=== PATIENT | male | born 1945 | race Caucasian/White ===

== ENCOUNTER 2018-07-17 05:51 | Day surgery (SDC) | payer MEDICARE, BC, OTHER ==
[2018-07-10 11:31] LABS: BASOPHILS % (AUTO) 0.4 % (0-1); EOSINOPHILS # (AUTO) 0.2 X10'3 (0-0.9); EOSINOPHILS % (AUTO) 3.4 % (0-6); LYMPHOCYTES # (AUTO) 1.2 X10'3 (1.1-4.8); LYMPHOCYTES % (AUTO) 18.9 % (21-51); MEAN CORPUSCULAR HEMOGLOBIN 31.4 PG (27.0-31.0); MEAN CORPUSCULAR HGB CONC 34.3 % (33.0-36.5); MEAN CORPUSCULAR VOLUME 91.6 FL (78-98); MEAN PLATELET VOLUME 7.4 FL (7.4-10.4); MONOCYTES # (AUTO) 0.6 X10'3 (0-0.9); MONOCYTES % (AUTO) 9.5 % (2-12); NEUTROPHILS # (AUTO) 4.2 X10'3 (1.8-7.7); NEUTROPHILS % (AUTO) 67.8 % (42-75); PRE OP HEMATOCRIT 37.6 % (42.0-52.0); PRE OP HEMOGLOBIN 12.9 g/dL (14.0-17.9); PRE OP PLATELET COUNT 183 X10'3 (140-440); RED CELL DISTRIBUTION WIDTH 13.3 % (11.5-14.5)
[2018-07-10 11:45] LABS: ALBUMIN 3.6 G/DL (3.4-5.0); ALBUMIN/GLOBULIN RATIO 1.1 (1.1-1.5); ALKALINE PHOSPHATASE 81 IU/L (46-116); BLOOD UREA NITROGEN 22 MG/DL (7-18); BUN/CREATININE RATIO 13.3 (5.4-32.0); CALCIUM 8.8 MG/DL (8.5-10.1); CHLORIDE 104 MMOL/L (99-107); CREATININE 1.66 MG/DL (0.60-1.10); PRE OP ALT 32 U/L (30-65); PRE OP ANION GAP 5 (8-16); PRE OP AST 21 U/L (10-37); PRE OP BILIRUB, TOTAL 0.4 MG/DL (0.0-1.0); PRE OP POTASSIUM 4.5 MMOL/L (3.4-5.1); PRE OP SODIUM 140 MMOL/L (135-145); TOTAL CARBON DIOXIDE 30.6 MMOL/L (24-32); eGFR 41 ML/MIN
[2018-07-10 11:48] LABS: PRE OP GLUCOSE 106 MG/DL (70-104)
[~2018-07-17] VITALS: Ht 165.1 cm; Wt 97.4 kg
[2018-07-17 05:45] VITALS: BP 123/87
[~2018-07-17 05:51] MED LIST: APIX5TAB3 PO; BUPR100T6 PO; BUSP5TAB3 PO; CARV25TA2 PO; CETI10TA15 PO; CYA500T PO; EZET10TA14 PO; FERR325T28 PO; FISH12002 PO; LEVO50TA8 PO; LOSA25TA96 PO; PARA500W TP; ROSU40TA PO; SERT100T10 PO; TAMS0.4C32 PO; TRAZ-218 PO; VITC500T PO; cefazolin/dext.iso 2gm/50ml 50 ML IV ONE; famotidine 20mg tablet PO ONE; ringers solution, lacted 1,000 ML IV SCH
[2018-07-17] MEDS ORDERED: BUPIVAcaine/PF 2.5mg/ml (0.25%) 10ml vial ONE (08:15)
[2018-07-17] MEDS ORDERED: ringers solution, lacted 1,000 ML IV SCH (08:22)
[2018-07-17] MEDS ORDERED: meperidine/PF 25mg/ml syringe IV PRN ×3 (08:25)
[2018-07-17] MEDS ORDERED: ondansetron/PF 4mg/2ml inj IV PRN (08:25)
[2018-07-17] MEDS ORDERED: morphine 4 MG/ML inj SYRINge IV PRN ×2 (08:25)
[2018-07-17] MEDS ORDERED: proCHLORperazine 10 MG/2 ml inj IV PRN (08:25)
[2018-07-17] MEDS ORDERED: MIDAZolam 5mg/5ml vial ONE (08:32)
[2018-07-17] MEDS ORDERED: fentaNYL/PF 50MCG/1 ML 2ML syringe ONE (08:32)
[2018-07-17] MEDS ORDERED: ketorolac trometh. 30mg/ml inj. ONE ×2 (08:33→08:58)
[2018-07-17] MEDS ORDERED: propofol inj 20 ML IV ONE (08:34)
[2018-07-17 09:25] VITALS: BP 116/71
[2018-07-17 09:26] VITALS: BP 116/71
[2018-07-17 09:35] VITALS: BP 122/75
[2018-07-17 09:45] VITALS: BP 124/71
[2018-07-17 09:55] VITALS: BP 116/69
[2018-07-17] MEDS ORDERED: LIDOcaine 1% 30ml preserv. free vial ONE (10:14)
== END 2018-07-17 09:55 | disposition home or self-care (01) ==
LOC: PAS 05:51
PROVIDERS: ATTEND Orthopaedic Surgery Hand Surgery
DX: G56.02 Carpal tunnel syndrome, left upper limb (principal); M65.332 Trigger finger, left middle finger; I44.7 Left bundle-branch block, unspecified; F10.21 Alcohol dependence, in remission; G47.33 Obstructive sleep apnea (adult) (pediatric); I11.0 Hypertensive heart disease with heart failure; I50.9 Heart failure, unspecified; I49.8 Other specified cardiac arrhythmias; E11.9 Type 2 diabetes mellitus without complications; E66.9 Obesity, unspecified; E03.9 Hypothyroidism, unspecified; F41.8 Other specified anxiety disorders; I65.23 Occlusion and stenosis of bilateral carotid arteries; I48.91 Unspecified atrial fibrillation; F32.9 Major depressive disorder, single episode, unspecified; F43.10 Post-traumatic stress disorder, unspecified; Z88.5 Allergy status to narcotic agent; Z79.01 Long term (current) use of anticoagulants; Z68.35 Body mass index [BMI] 35.0-35.9, adult; Z87.442 Personal history of urinary calculi; Z86.74 Personal history of sudden cardiac arrest; Z79.891 Long term (current) use of opiate analgesic; Z90.49 Acquired absence of other specified parts of digestive tract; Z87.891 Personal history of nicotine dependence; Z98.890 Other specified postprocedural states; Z79.899 Other long term (current) drug therapy
CPT/HCPCS: 26055; 36415; 64721; 80053; 82948; 85025; 93005; A6222; A6449; J0690; J1885; J2250; J2704; J3010; J3490; J7120

== ENCOUNTER 2018-08-14 05:21 | Day surgery (SDC) | payer MEDICARE, BC, OTHER ==
[~2018-08-14] VITALS: Ht 165.1 cm; Wt 96.8 kg
[~2018-08-14 05:21] MED LIST changes: -famotidine 20mg tablet PO ONE
[2018-08-14 05:30] VITALS: BP 107/76
[2018-08-14] MEDS ORDERED: famotidine 20mg tablet PO ONE (05:30)
[2018-08-14] MEDS ORDERED: DOCUMENT DATE & TIME OF BETA-BLOCKER PO ONE (05:30)
[2018-08-14] MEDS ORDERED: LIDOcaine 1% (10mg/ml) 2ml vial ONE (05:43)
[2018-08-14 06:24] LABS: BASOPHILS # (AUTO) 0.1 X10'3 (0-0.2); EOSINOPHILS # (AUTO) 0.3 X10'3 (0-0.9); HEMATOCRIT 42.2 % (42.0-52.0); HEMOGLOBIN 13.9 g/dl (14.0-17.9); LYMPHOCYTES # (AUTO) 1.3 X10'3 (1.1-4.8); LYMPHOCYTES % (AUTO) 25.6 % (21-51); MEAN CORPUSCULAR HEMOGLOBIN 30.3 PG (27.0-31.0); MEAN CORPUSCULAR VOLUME 91.7 FL (78-98); MEAN PLATELET VOLUME 7.6 FL (7.4-10.4); MONOCYTES # (AUTO) 0.6 X10'3 (0-0.9); MONOCYTES % (AUTO) 11.2 % (2-12); NEUTROPHILS # (AUTO) 2.7 X10'3 (1.8-7.7); NEUTROPHILS % (AUTO) 57.2 % (42-75); PLATELET COUNT 206 X10'3 (140-440); RED CELL DISTRIBUTION WIDTH 12.7 % (11.5-14.5)
[2018-08-14 06:48] LABS: ALANINE AMINOTRANSFERASE 29 U/L (12-78); ALBUMIN 3.4 G/DL (3.4-5.0); ALBUMIN/GLOBULIN RATIO 0.9 (1.1-1.5); ALKALINE PHOSPHATASE 77 IU/L (46-116); ANION GAP 13 (8-16); BILIRUBIN,TOTAL 0.3 MG/DL (0.1-1.0); BLOOD UREA NITROGEN 28 MG/DL (7-18); BUN/CREATININE RATIO 15.5 (5.4-32.0); CALCIUM 8.7 MG/DL (8.5-10.1); CHLORIDE 105 MMOL/L (99-107); CREATININE 1.81 MG/DL (0.60-1.10); SODIUM 141 MMOL/L (135-145); TOTAL CARBON DIOXIDE 22.6 MMOL/L (24-32); eGFR 37 ML/MIN
[2018-08-14] MEDS ORDERED: BUPIVAcaine/PF 2.5mg/ml (0.25%) 10ml vial ONE (06:51)
[2018-08-14 06:59] LABS: GLUCOSE 140 MG/DL (70-104); POTASSIUM 3.9 MMOL/L (3.5-5.1)
[2018-08-14 07:00] LABS: PARTIAL THROMBOPLASTIN TIME 29 SECONDS (22-32); PROTHROMBIN TIME 10.3 SECONDS (9.0-12.0)
[2018-08-14 07:09] LABS: ASPARTATE AMINO TRANSFERASE 20 U/L (10-37)
[2018-08-14] MEDS ORDERED: LIDOcaine 0.5% (5mg/ml) 50ml vial ONE (07:27)
[2018-08-14] MEDS ORDERED: fentaNYL/PF 50MCG/1 ML 2ML syringe ONE (07:31)
[2018-08-14] MEDS ORDERED: midazolam 2 mg/2 ml injection ONE (07:32)
[2018-08-14] MEDS ORDERED: ringers solution, lacted 1,000 ML IV SCH (07:39)
[2018-08-14] MEDS ORDERED: meperidine/PF 25mg/ml syringe IV PRN ×3 (07:40)
[2018-08-14] MEDS ORDERED: morphine 4 MG/ML inj SYRINge IV PRN ×2 (07:40)
[2018-08-14] MEDS ORDERED: ondansetron/PF 4mg/2ml inj IV PRN (07:40)
[2018-08-14] MEDS ORDERED: proCHLORperazine 10 MG/2 ml inj IV PRN (07:40)
[2018-08-14 08:07] VITALS: BP 104/61
--- NOTE | 2018-08-14 08:07 | NUR ---
Received from OR via [facility] , accompanied by Anesthesiologist DUSTIN and report given by Anesthesiolgist. PATIENT WITH 20G PIV IN LEFT UE AND RIGHT WRIST CHINMAY BANDAGE THAT IS CDI. MOVES ALL FINGERS AND THEY ARE PWD. PATIENT WITH 3L NASAL CANNULA PRESENT WITH 95% SATURATIONS. Addendum: 08/14/18 at 0818 by Calos Good RN, RN Amended: Links added.
[2018-08-14 08:17] VITALS: BP_SYST 105; BP_SYST 107; BP_DIAS 62; BP_DIAS 64
[2018-08-14 08:27] VITALS: BP 130/68
[2018-08-14 08:37] VITALS: BP 137/74
--- NOTE | 2018-08-14 08:47 | NUR ---
ALL DC CRITERIA HAS BEEN MET. IV TAKEN OUT WITHOUT COMPLICATIONS. ALL INSTRUCTIONS COVERED AND ALL QUESTIONS ANSWERED. DRESSINGS CDI. OUT VIA WHEELCHAIR TO PERSONAL VEHICLE WHERE PATIENT WAS SECURED IN AND DRIVEN HOME BY FAMILY. Addendum: 08/14/18 at 0901 by Calos Good RN, RN Amended: Links added.
== END 2018-08-14 08:47 | disposition home or self-care (01) ==
LOC: PAS 05:21
PROVIDERS: ATTEND Orthopaedic Surgery Hand Surgery
DX: G56.01 Carpal tunnel syndrome, right upper limb (principal); I10 Essential (primary) hypertension; E11.9 Type 2 diabetes mellitus without complications; G47.33 Obstructive sleep apnea (adult) (pediatric); E66.9 Obesity, unspecified; F41.8 Other specified anxiety disorders; F43.10 Post-traumatic stress disorder, unspecified; I48.91 Unspecified atrial fibrillation; I65.23 Occlusion and stenosis of bilateral carotid arteries; E03.9 Hypothyroidism, unspecified; F10.21 Alcohol dependence, in remission; F32.9 Major depressive disorder, single episode, unspecified; Z79.01 Long term (current) use of anticoagulants; Z87.891 Personal history of nicotine dependence; Z68.35 Body mass index [BMI] 35.0-35.9, adult; Z86.74 Personal history of sudden cardiac arrest; Z87.442 Personal history of urinary calculi; Z79.891 Long term (current) use of opiate analgesic; Z88.5 Allergy status to narcotic agent; Z90.49 Acquired absence of other specified parts of digestive tract; Z98.890 Other specified postprocedural states; Z79.899 Other long term (current) drug therapy
CPT/HCPCS: 36415; 64721; 80053; 82948; 85025; 85610; 85730; A6222; A6449; J0690; J2001; J2250; J3010; J3490; J7120

== ENCOUNTER 2019-10-09 07:39 | Emergency (ER) | payer BC, MEDICARE ==
[~2019-10-09] VITALS: Ht 167.6 cm; Wt 98.2 kg
[~2019-10-09 07:39] MED LIST changes: +APIX2.5T PO; +CHOL400T32 PO; -CYA500T PO; -EZET10TA14 PO; +EZET10TA6 PO; -TRAZ-218 PO; +TRAZ-251 PO; -cefazolin/dext.iso 2gm/50ml 50 ML IV ONE; -ringers solution, lacted 1,000 ML IV SCH
--- NOTE | 2019-10-09 08:23 | NUR ---
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 HE RECEIVED THE PACEMAKER INTERROGATION AND IS FAXING THE REPORT. HIS CELL PHONE [phone]
[2019-10-09 09:20] LABS: BASOPHILS # (AUTO) 0.1 X10'3 (0-0.2); BASOPHILS % (AUTO) 1.2 % (0-1); EOSINOPHILS # (AUTO) 0.2 X10'3 (0-0.9); EOSINOPHILS % (AUTO) 3.6 % (0-6); HEMATOCRIT 40.5 % (42.0-52.0); HEMOGLOBIN 13.6 g/dl (14.0-17.9); LYMPHOCYTES # (AUTO) 0.7 X10'3 (1.1-4.8); LYMPHOCYTES % (AUTO) 12.7 % (21-51); MEAN CORPUSCULAR HEMOGLOBIN 30.5 PG (27.0-31.0); MEAN CORPUSCULAR HGB CONC 33.5 g/dL (33.0-36.5); MEAN PLATELET VOLUME 7.8 FL (7.4-10.4); MONOCYTES # (AUTO) 0.6 X10'3 (0-0.9); MONOCYTES % (AUTO) 10.8 % (2-12); NEUTROPHILS # (AUTO) 4.1 X10'3 (1.8-7.7); NEUTROPHILS % (AUTO) 71.7 % (42-75); PLATELET COUNT 165 X10'3 (140-440); RED BLOOD COUNT 4.44 X10'6 (4.70-6.10); WHITE BLOOD COUNT 5.7 X10'3 (4.5-11.0)
[2019-10-09 09:26] LABS: ALANINE AMINOTRANSFERASE 53 U/L (12-78); ALBUMIN 3.3 G/DL (3.4-5.0); ALBUMIN/GLOBULIN RATIO 0.8 (1.1-1.5); ALKALINE PHOSPHATASE 81 IU/L (46-116); ANION GAP 6 (8-16); ASPARTATE AMINO TRANSFERASE 27 U/L (10-37); BILIRUBIN,TOTAL 0.6 MG/DL (0.1-1.0); BLOOD UREA NITROGEN 19 MG/DL (7-18); BUN/CREATININE RATIO 10.8 (5.4-32.0); CHLORIDE 107 MMOL/L (99-107); CREATININE 1.76 MG/DL (0.60-1.10); GLUCOSE 123 MG/DL (70-104); MAGNESIUM 2.2 MG/DL (1.5-2.4); POTASSIUM 4.8 MMOL/L (3.5-5.1); SODIUM 142 MMOL/L (135-145); TOTAL PROTEIN 7.3 G/DL (6.4-8.2); eGFR 38 ML/MIN
[2019-10-09 11:28] VITALS: BP 131/73
== END 2019-10-09 11:45 | disposition home or self-care (01) ==
LOC: ER 07:40
DX: T82.897A Other specified complication of cardiac prosthetic devices, implants and grafts, initial encounter (principal); I47.2 Ventricular tachycardia; I25.10 Atherosclerotic heart disease of native coronary artery without angina pectoris; E78.00 Pure hypercholesterolemia, unspecified; I10 Essential (primary) hypertension; I25.2 Old myocardial infarction; Z95.810 Presence of automatic (implantable) cardiac defibrillator; Z98.890 Other specified postprocedural states; Z88.5 Allergy status to narcotic agent; Z79.899 Other long term (current) drug therapy; Y84.8 Other medical procedures as the cause of abnormal reaction of the patient, or of later complication, without mention of misadventure at the time of the procedure; Y92.89 Other specified places as the place of occurrence of the external cause
CPT/HCPCS: 36415; 71045; 80053; 83735; 84484; 85025; 93005; 99291

== ENCOUNTER 2021-02-03 17:42 | Emergency (ER) | payer OTHER, BC ==
[~2021-02-03] VITALS: Ht 160 cm; Wt 84.0 kg
[~2021-02-03 17:42] MED LIST changes: +AMIO200T27 PO; -APIX2.5T PO; -BUPR100T6 PO; +BUPR75TA8 PO; -BUSP5TAB3 PO; -CARV25TA2 PO; +CARV3.122 PO; -CHOL400T32 PO; +CYAN500T46 PO; -FERR325T28 PO; -FISH12002 PO; +FURO-150 PO; +IPRA4AER IH; +LANO250L TP; +LEVO125T8 PO; -LEVO50TA8 PO; -LOSA25TA96 PO; +OMEG1CAP2 PO; -PARA500W TP; -ROSU40TA PO; +SERT-434 PO; -SERT100T10 PO
[2021-02-03] MEDS ORDERED: normal saline 1000ML IV soln IVB ONE (18:10)
[2021-02-03 18:23] LABS: BASOPHILS % (AUTO) 0.5 % (0-1); EOSINOPHILS % (AUTO) 0.1 % (0-6); HEMATOCRIT 29.7 % (42.0-52.0); HEMOGLOBIN 10.4 g/dl (14.0-17.9); LYMPHOCYTES # (AUTO) 0.6 X10'3 (1.1-4.8); LYMPHOCYTES % (AUTO) 8.8 % (21-51); MEAN CORPUSCULAR HEMOGLOBIN 32.4 PG (27.0-31.0); MEAN CORPUSCULAR HGB CONC 34.9 g/dL (33.0-36.5); MEAN PLATELET VOLUME 7.4 FL (7.4-10.4); MONOCYTES # (AUTO) 0.6 X10'3 (0-0.9); MONOCYTES % (AUTO) 9.4 % (2-12); NEUTROPHILS # (AUTO) 5.5 X10'3 (1.8-7.7); NEUTROPHILS % (AUTO) 81.2 % (42-75); PLATELET COUNT 207 X10'3 (140-440); RED BLOOD COUNT 3.19 X10'6 (4.70-6.10); RED CELL DISTRIBUTION WIDTH 14.9 % (11.5-14.5); WHITE BLOOD COUNT 6.7 X10'3 (4.5-11.0)
[2021-02-03 18:45] LABS: ALANINE AMINOTRANSFERASE 42 U/L (12-78); ALBUMIN 2.7 G/DL (3.4-5.0); ALKALINE PHOSPHATASE 64 IU/L (46-116); ANION GAP 14 (8-16); ASPARTATE AMINO TRANSFERASE 16 U/L (10-37); BILIRUBIN,TOTAL 0.5 MG/DL (0.1-1.0); BLOOD UREA NITROGEN 28 MG/DL (7-18); BUN/CREATININE RATIO 13.5 (5.4-32.0); CALCIUM 7.9 MG/DL (8.5-10.1); CHLORIDE 104 MMOL/L (99-107); CREATININE 2.07 MG/DL (0.60-1.10); GLUCOSE 129 MG/DL (70-104); POTASSIUM 4.4 MMOL/L (3.5-5.1); SODIUM 141 MMOL/L (135-145); TOTAL CARBON DIOXIDE 23.2 MMOL/L (24-32); TOTAL PROTEIN 5.4 G/DL (6.4-8.2); eGFR 31 ML/MIN
[2021-02-03 18:54] LABS: D-DIMER 0.28 MG/L FEU (0-0.50)
[2021-02-03] MEDS ORDERED: GLIP5TAB13 PO (18:56)
[2021-02-03] MEDS ORDERED: OMEP40CA21 PO (18:56)
[2021-02-03] MEDS ORDERED: POTA10TA19 PO (18:56)
[2021-02-03] MEDS ORDERED: PRED5TAB PO (18:56)
[2021-02-03] MEDS ORDERED: MONT10TA21 PO (18:56)
[2021-02-03] MEDS ORDERED: DOCU100C40 PO (18:56)
[2021-02-03 19:45] VITALS: BP 107/73
== END 2021-02-03 20:42 | disposition home or self-care (01) ==
LOC: ER 17:42
DX: R07.89 Other chest pain (principal); E86.0 Dehydration; I48.91 Unspecified atrial fibrillation; I25.10 Atherosclerotic heart disease of native coronary artery without angina pectoris; E78.00 Pure hypercholesterolemia, unspecified; I10 Essential (primary) hypertension; I25.2 Old myocardial infarction; E11.9 Type 2 diabetes mellitus without complications; Z90.49 Acquired absence of other specified parts of digestive tract; Z95.0 Presence of cardiac pacemaker; Z98.890 Other specified postprocedural states; Z88.8 Allergy status to other drugs, medicaments and biological substances; Z79.899 Other long term (current) drug therapy
CPT/HCPCS: 36415; 71045; 80053; 83880; 84145; 84484; 85025; 85379; 93005; 96360; 96361; 99285; J7030

== ENCOUNTER 2021-04-06 13:35 | Emergency (ER) | payer BC, OTHER ==
[~2021-04-06] VITALS: Ht 160 cm; Wt 91.0 kg
[~2021-04-06 13:35] MED LIST changes: -AMIO200T27 PO; +DOCU100C40 PO; +GLIP5TAB13 PO; +MONT10TA21 PO; +OMEP40CA21 PO; +POTA10TA19 PO; +PRED5TAB PO
[2021-04-06 15:44] LABS: BASOPHILS # (AUTO) 0.1 X10'3 (0-0.2); BASOPHILS % (AUTO) 0.9 % (0-1); EOSINOPHILS # (AUTO) 0.1 X10'3 (0-0.9); EOSINOPHILS % (AUTO) 0.5 % (0-6); HEMATOCRIT 38.7 % (42.0-52.0); HEMOGLOBIN 13.1 g/dl (14.0-17.9); LYMPHOCYTES # (AUTO) 1.2 X10'3 (1.1-4.8); LYMPHOCYTES % (AUTO) 12.1 % (21-51); MEAN CORPUSCULAR HEMOGLOBIN 30.1 PG (27.0-31.0); MEAN CORPUSCULAR HGB CONC 33.9 g/dL (33.0-36.5); MEAN CORPUSCULAR VOLUME 88.6 FL (78-98); MONOCYTES # (AUTO) 0.9 X10'3 (0-0.9); NEUTROPHILS # (AUTO) 7.7 X10'3 (1.8-7.7); NEUTROPHILS % (AUTO) 77.5 % (42-75); PLATELET COUNT 168 X10'3 (140-440); RED BLOOD COUNT 4.37 X10'6 (4.70-6.10); RED CELL DISTRIBUTION WIDTH 14.8 % (11.5-14.5)
[2021-04-06 16:01] LABS: ALBUMIN 3.4 G/DL (3.4-5.0); ANION GAP 7 (8-16); BLOOD UREA NITROGEN 37 MG/DL (7-18); BUN/CREATININE RATIO 15.2 (5.4-32.0); CALCIUM 8.9 MG/DL (8.5-10.1); CHLORIDE 104 MMOL/L (99-107); CREATININE 2.43 MG/DL (0.60-1.10); GLUCOSE 88 MG/DL (70-104); POTASSIUM 4.2 MMOL/L (3.5-5.1); SODIUM 142 MMOL/L (135-145); TOTAL CARBON DIOXIDE 31.1 MMOL/L (24-32); TROPONIN I < 0.04 NG/ML (0.0-0.05); eGFR 26 ML/MIN
[2021-04-06 17:58] VITALS: BP 111/47
== END 2021-04-06 18:00 | disposition home or self-care (01) ==
LOC: ER 13:35
DX: I48.20 Chronic atrial fibrillation, unspecified (principal); R07.89 Other chest pain; I25.10 Atherosclerotic heart disease of native coronary artery without angina pectoris; E78.00 Pure hypercholesterolemia, unspecified; I10 Essential (primary) hypertension; I25.2 Old myocardial infarction; E11.9 Type 2 diabetes mellitus without complications; Z90.89 Acquired absence of other organs; Z95.0 Presence of cardiac pacemaker; Z98.890 Other specified postprocedural states; Z88.8 Allergy status to other drugs, medicaments and biological substances; Z79.899 Other long term (current) drug therapy
CPT/HCPCS: 36415; 71045; 80048; 84484; 85025; 93005; 99285

== ENCOUNTER 2021-06-29 14:02 | Inpatient (IN) | payer OTHER, BC ==
[~2021-06-29] VITALS: Ht 162.6 cm; Wt 85.9 kg
[~2021-06-29 14:02] MED LIST changes: +POTA-192 PO; -POTA10TA19 PO
[2021-06-29] MEDS ORDERED: aspirin 81mg tab.chew PO ONE (14:25)
[2021-06-29] MEDS ORDERED: nitroGLYCERIN 0.4mg SUBLingual tab SL PRN (14:25)
[2021-06-29 14:47] LABS: BASOPHILS # (AUTO) 0.1 X10'3 (0-0.2); BASOPHILS % (AUTO) 0.7 % (0-1); EOSINOPHILS # (AUTO) 0.1 X10'3 (0-0.9); EOSINOPHILS % (AUTO) 1.2 % (0-6); HEMATOCRIT 33.8 % (42.0-52.0); HEMOGLOBIN 11.2 g/dl (14.0-17.9); LYMPHOCYTES # (AUTO) 0.6 X10'3 (1.1-4.8); LYMPHOCYTES % (AUTO) 7.7 % (21-51); MEAN CORPUSCULAR HEMOGLOBIN 29.4 PG (27.0-31.0); MEAN CORPUSCULAR VOLUME 88.9 FL (78-98); MEAN PLATELET VOLUME 8.2 FL (7.4-10.4); MONOCYTES # (AUTO) 0.8 X10'3 (0-0.9); MONOCYTES % (AUTO) 9.7 % (2-12); NEUTROPHILS # (AUTO) 6.6 X10'3 (1.8-7.7); NEUTROPHILS % (AUTO) 80.7 % (42-75); PLATELET COUNT 176 X10'3 (140-440); RED CELL DISTRIBUTION WIDTH 15.7 % (11.5-14.5); WHITE BLOOD COUNT 8.2 X10'3 (4.5-11.0)
[2021-06-29 15:00] LABS: D-DIMER 0.25 MG/L FEU (0-0.50); PARTIAL THROMBOPLASTIN TIME 30 SECONDS (22-32)
[2021-06-29 15:09] LABS: ALANINE AMINOTRANSFERASE 31 U/L (12-78); ALBUMIN 3.4 G/DL (3.4-5.0); ALBUMIN/GLOBULIN RATIO 1.1 (1.1-1.5); ALKALINE PHOSPHATASE 68 IU/L (46-116); ANION GAP 6 (8-16); ASPARTATE AMINO TRANSFERASE 18 U/L (10-37); BILIRUBIN,TOTAL 0.7 MG/DL (0.1-1.0); BLOOD UREA NITROGEN 33 MG/DL (7-18); BUN/CREATININE RATIO 13.3 (5.4-32.0); CALCIUM 8.7 MG/DL (8.5-10.1); CHLORIDE 106 MMOL/L (99-107); CREATININE 2.48 MG/DL (0.60-1.10); GLUCOSE 95 MG/DL (70-104); SODIUM 144 MMOL/L (135-145); TOTAL PROTEIN 6.6 G/DL (6.4-8.2); eGFR 25 ML/MIN
[2021-06-29 15:10] LABS: MAGNESIUM 2.6 MG/DL (1.5-2.4)
[2021-06-29] MEDS ORDERED: furosemide 10 MG/1 ML 10ml inj IV ONE (15:25)
[2021-06-29] MEDS ORDERED: MESSAGE TO PHARMACY PO ONE (15:35)
[2021-06-29] MEDS ORDERED: ondansetron/PF 4mg/2ml inj IV PRN (15:35)
[2021-06-29] MEDS ORDERED: dextrose 50%-water 50ml dispensing syringe IV PRN ×2 (15:35)
[2021-06-29] MEDS ORDERED: magnesium hydroxide 30ml (MOM) UD suspension PO PRN (15:35)
[2021-06-29] MEDS ORDERED: dextrose ORAL solution 15 GM/59 ML bottle PO PRN ×2 (15:35)
[2021-06-29] MEDS ORDERED: morphine 2 MG/ML inj. syringe IV PRN ×2 (15:35)
[2021-06-29] MEDS ORDERED: insulin Lispro (HumaLOG) vial - multi-dose SQ SCH (15:35)
[2021-06-29] MEDS ORDERED: acetaminophen 325mg tablet PO PRN ×2 (15:35)
[2021-06-29] MEDS ORDERED: glucagon, human recombinant 1mg kit SUBCUT PRN (15:35)
[2021-06-29] MEDS ORDERED: mag hydrox/Alum hydrox/simeth 30ml oral suspension PO PRN (15:35)
[2021-06-29] MEDS ORDERED: POTA-207 PO (16:05)
[2021-06-29] MEDS ORDERED: SERT-434 PO (16:05)
[2021-06-29] MEDS ORDERED: TIOT4MIS3 PO (16:05)
[2021-06-29] MEDS ORDERED: LEVO112T5 PO (16:05)
[2021-06-29] MEDS ORDERED: APIX5TAB3 PO (16:05)
[2021-06-29] MEDS ORDERED: BUPR75TA8 PO (16:05)
[2021-06-29] MEDS ORDERED: TRAZ-251 PO (16:05)
[2021-06-29] MEDS ORDERED: ROSU20TA2 PO (16:05)
[2021-06-29] MEDS ORDERED: FURO40TA4 PO (16:05)
[2021-06-29] MEDS ORDERED: MULT-227 PO (16:05)
[2021-06-29] MEDS ORDERED: EZET10TA6 PO (16:05)
[2021-06-29] MEDS ORDERED: CARV25TA2 PO (16:05)
[2021-06-29] MEDS ORDERED: ALOG12.5 PO (16:05)
[2021-06-29] MEDS ORDERED: KETO5DRO11 EACHEYE (16:05)
[2021-06-29 16:26] LABS: LACTATE DEHYDROGENASE 221 U/L (85-227)
[2021-06-29 17:26] LABS: HEMOGLOBIN A1C 5.9 % (4.5-6.2)
[2021-06-29] MEDS ORDERED: non-formulary drug (Ketotifen Fumarate 1 DROP) EACHEYE PRN (17:40)
[2021-06-29 19:05] LABS: CLARITY,URINE CLEAR (Clear); COLOR,URINE YELLOW (Yellow); UA COLLECTION TYPE URINAL
[2021-06-29 19:06] LABS: GLUCOSE, URINE NEGATIVE (Neg); KETONES,URINE NEGATIVE (Neg); LEUKOCYTE ESTERASE ,URINE NEGATIVE (Neg); NITRITES, URINE NEGATIVE (Neg); OCCULT BLOOD,URINE NEGATIVE (Neg); PROTEIN,URINE NEGATIVE (Neg); UROBILINOGEN,URINE 0.2 E.U/dL (0.2-1.0)
[2021-06-29] MEDS ORDERED: heparin, porcine 5000 units/ml vial SQ SCH (20:00)
[2021-06-29] MEDS: carVEDilol 12.5mg tablet PO SCH ×2 (20:00→20:23)
[2021-06-29] MEDS ORDERED: furosemide 40mg/4ml inj IV SCH (20:00)
[2021-06-29] MEDS ORDERED: apixaban 5mg tablet PO SCH (20:00)
[2021-06-29] MEDS: docusate sod 100mg capsule PO SCH (20:23)
[2021-06-29] MEDS: buPROPion 75mg tablet PO SCH (20:23)
[2021-06-29] MEDS ORDERED: insulin glargine (Lantus) pen - multi-dose SQ SCH (21:00)
[2021-06-29] MEDS ORDERED: traZODone 50mg tablet PO SCH (21:00)
[2021-06-30 05:36] LABS: BASOPHILS % (AUTO) 0.6 % (0-1); EOSINOPHILS # (AUTO) 0.3 X10'3 (0-0.9); EOSINOPHILS % (AUTO) 3.7 % (0-6); HEMATOCRIT 28.1 % (42.0-52.0); HEMOGLOBIN 9.3 g/dl (14.0-17.9); LYMPHOCYTES # (AUTO) 0.8 X10'3 (1.1-4.8); LYMPHOCYTES % (AUTO) 10.3 % (21-51); MEAN CORPUSCULAR HEMOGLOBIN 29.8 PG (27.0-31.0); MEAN CORPUSCULAR HGB CONC 33.2 g/dL (33.0-36.5); MEAN CORPUSCULAR VOLUME 89.7 FL (78-98); MEAN PLATELET VOLUME 8.8 FL (7.4-10.4); MONOCYTES # (AUTO) 0.8 X10'3 (0-0.9); MONOCYTES % (AUTO) 11.1 % (2-12); NEUTROPHILS # (AUTO) 5.5 X10'3 (1.8-7.7); NEUTROPHILS % (AUTO) 74.3 % (42-75); PLATELET COUNT 150 X10'3 (140-440); RED BLOOD COUNT 3.13 X10'6 (4.70-6.10); RED CELL DISTRIBUTION WIDTH 16.2 % (11.5-14.5); WHITE BLOOD COUNT 7.4 X10'3 (4.5-11.0)
[2021-06-30 05:55] LABS: ALBUMIN 2.7 G/DL (3.4-5.0); ANION GAP 9 (8-16); BLOOD UREA NITROGEN 32 MG/DL (7-18); CALCIUM 7.3 MG/DL (8.5-10.1); CHLORIDE 110 MMOL/L (99-107); CHOLESTEROL 73 MG/DL (0-200); CREATININE 2.28 MG/DL (0.60-1.10); GLUCOSE 73 MG/DL (70-104); HDL CHOLESTEROL 36 MG/DL (35-60); LDL CHOLESTEROL 33 MG/DL (50-100); POTASSIUM 3.1 MMOL/L (3.5-5.1); SODIUM 148 MMOL/L (135-145); TOTAL CARBON DIOXIDE 28.7 MMOL/L (24-32); TRIGLYCERIDES 58 MG/DL (20-135); eGFR 28 ML/MIN
[2021-06-30] MEDS: carVEDilol 12.5mg tablet PO SCH (07:06)
[2021-06-30] MEDS: buPROPion 75mg tablet PO SCH (07:06)
[2021-06-30] MEDS: docusate sod 100mg capsule PO SCH (07:06)
[2021-06-30] MEDS ORDERED: multivitamins, therapeutics tablet PO SCH (08:00)
[2021-06-30] MEDS ORDERED: levoTHYROXINE 112mcg tablet PO SCH (08:00)
[2021-06-30] MEDS ORDERED: ezetimibe 10mg tablet PO SCH (08:00)
[2021-06-30] MEDS ORDERED: carVEDilol 3.125mg tablet PO SCH (08:00)
[2021-06-30] MEDS ORDERED: atorvastatin 20mg tablet PO SCH (08:00)
[2021-06-30] MEDS ORDERED: STIOLTO RESPIMAT PO SCH (08:00)
[2021-06-30] MEDS ORDERED: sertraline 50mg tablet PO SCH (08:00)
--- NOTE | 2021-06-30 08:14 | NUR ---
PT'S SON, PAYTON IBARRA, CALLED FOR UP DATE ON HIS FATHER'S STATUS. PT HAS GIVEN VERBAL PERMISSION TO GIVE INFORMATION ON HIS STATUS DURING HIS CURRENT VISIT.
[2021-06-30] MEDS ORDERED: FURO40TA4 PO (10:59)
[2021-06-30] MEDS ORDERED: CARV3.12 PO (11:03)
[2021-06-30] MEDS ORDERED: SPIR25TA5 PO (11:03)
[2021-06-30] MEDS ORDERED: LISI5TAB22 PO (11:03)
[2021-06-30 11:33] VITALS: BP 98/65
[2021-07-04] MEDS ORDERED: FURO-149 PO (12:54)
[2021-07-04] MEDS ORDERED: PRED1TAB PO (12:54)
[2021-07-04] MEDS ORDERED: CETI10TA15 PO (12:54)
[2021-07-04] MEDS ORDERED: VIT1CAPS46 PO (12:54)
[2021-07-04] MEDS ORDERED: OMEG-79 PO (12:54)
[2021-07-04] MEDS ORDERED: CYAN500T46 PO (12:54)
[2021-07-04] MEDS ORDERED: FLO0.4C PO (12:54)
[2021-07-04] MEDS ORDERED: ALOG6.252 PO (12:54)
== END 2021-06-30 12:39 | disposition home or self-care (01) | DRG 291 ==
LOC: ER 14:02 → ED HOLD 15:42
PROVIDERS: ADMIT Internal Medicine; ATTEND Internal Medicine
DX: I13.0 Hypertensive heart and chronic kidney disease with heart failure and stage 1 through stage 4 chronic kidney disease, or unspecified chronic kidney disease (principal); I50.23 Acute on chronic systolic (congestive) heart failure; I24.9 Acute ischemic heart disease, unspecified; J96.11 Chronic respiratory failure with hypoxia; N17.9 Acute kidney failure, unspecified; E03.9 Hypothyroidism, unspecified; E11.22 Type 2 diabetes mellitus with diabetic chronic kidney disease; E11.65 Type 2 diabetes mellitus with hyperglycemia; E78.00 Pure hypercholesterolemia, unspecified; E78.5 Hyperlipidemia, unspecified; F32.A Depression, unspecified; G47.00 Insomnia, unspecified; F41.9 Anxiety disorder, unspecified; I49.5 Sick sinus syndrome; I25.10 Atherosclerotic heart disease of native coronary artery without angina pectoris; I48.0 Paroxysmal atrial fibrillation; J44.9 Chronic obstructive pulmonary disease, unspecified; N18.30 Chronic kidney disease, stage 3 unspecified; Z20.822 Contact with and (suspected) exposure to COVID-19; Z79.01 Long term (current) use of anticoagulants; Z79.899 Other long term (current) drug therapy; Z87.891 Personal history of nicotine dependence; Z90.49 Acquired absence of other specified parts of digestive tract; I25.2 Old myocardial infarction; Z95.810 Presence of automatic (implantable) cardiac defibrillator; Z88.5 Allergy status to narcotic agent; Z98.49 Cataract extraction status, unspecified eye
CPT/HCPCS: 36415; 71045; 80048; 80053; 80061; 81003; 82948; 83036; 83615; 83735; 83880; 84484; 85025; 85379; 85610; 85730; 87635; 93005; 93306; 99285; G0378; J1815; J1940

== ENCOUNTER 2021-07-18 12:02 | Inpatient (IN) | payer OTHER, BC ==
[~2021-07-18] VITALS: Ht 160 cm; Wt 86.5 kg
[~2021-07-18 12:02] MED LIST changes: +ALOG6.252 PO; +CARV25TA2 PO; -CARV3.122 PO; -DOCU100C40 PO; +FLO0.4C PO; +FURO-149 PO; -FURO-150 PO; -GLIP5TAB13 PO; -IPRA4AER IH; +KETO5DRO11 EACHEYE; -LANO250L TP; +LEVO112T5 PO; -LEVO125T8 PO; -MONT10TA21 PO; +MULT-227 PO; +OMEG-79 PO; -OMEG1CAP2 PO; -OMEP40CA21 PO; -POTA-192 PO; +POTA-207 PO; +PRED1TAB PO; -PRED5TAB PO; +ROSU20TA2 PO; -TAMS0.4C32 PO; +TIOT4MIS3 PO; +VIT1CAPS46 PO; -VITC500T PO
--- NOTE | 2021-07-18 14:09 | NUR ---
COLLINS Shaw made aware of patient's status, HR 158 afib RVR.
[2021-07-18] MEDS ORDERED: diltiazem 5mg/ml 5ml inj. IV ONE ×2 (14:15→14:25)
[2021-07-18 14:16] LABS: BASOPHILS # (AUTO) 0.1 X10'3 (0-0.2); BASOPHILS % (AUTO) 0.7 % (0-1); EOSINOPHILS # (AUTO) 0.1 X10'3 (0-0.9); EOSINOPHILS % (AUTO) 0.8 % (0-6); HEMATOCRIT 36.6 % (42.0-52.0); HEMOGLOBIN 11.9 g/dl (14.0-17.9); LYMPHOCYTES # (AUTO) 0.6 X10'3 (1.1-4.8); LYMPHOCYTES % (AUTO) 7.1 % (21-51); MEAN CORPUSCULAR HEMOGLOBIN 28.3 PG (27.0-31.0); MEAN CORPUSCULAR HGB CONC 32.4 g/dL (33.0-36.5); MEAN CORPUSCULAR VOLUME 87.4 FL (78-98); MEAN PLATELET VOLUME 8.8 FL (7.4-10.4); MONOCYTES # (AUTO) 0.9 X10'3 (0-0.9); NEUTROPHILS # (AUTO) 7.4 X10'3 (1.8-7.7); NEUTROPHILS % (AUTO) 81.4 % (42-75); PLATELET COUNT 191 X10'3 (140-440); RED BLOOD COUNT 4.19 X10'6 (4.70-6.10); WHITE BLOOD COUNT 9.1 X10'3 (4.5-11.0)
[2021-07-18] MEDS ORDERED: nitroGLYCERIN-Tridil 50MG/D5W 250 ML IV PRN (14:25)
[2021-07-18] MEDS ORDERED: furosemide 10 MG/1 ML 10ml inj IV ONE (14:25)
[2021-07-18 14:44] LABS: ALANINE AMINOTRANSFERASE 35 U/L (12-78); ALBUMIN 3.5 G/DL (3.4-5.0); ALKALINE PHOSPHATASE 80 IU/L (46-116); ANION GAP 13 (8-16); ASPARTATE AMINO TRANSFERASE 26 U/L (10-37); BILIRUBIN,TOTAL 1.1 MG/DL (0.1-1.0); BLOOD UREA NITROGEN 34 MG/DL (7-18); BUN/CREATININE RATIO 12.7 (5.4-32.0); CALCIUM 9.5 MG/DL (8.5-10.1); CHLORIDE 98 MMOL/L (99-107); CREATININE 2.67 MG/DL (0.60-1.10); GLUCOSE 115 MG/DL (70-104); POTASSIUM 4.5 MMOL/L (3.5-5.1); SODIUM 139 MMOL/L (135-145); TOTAL CARBON DIOXIDE 28.3 MMOL/L (24-32); TOTAL PROTEIN 7.1 G/DL (6.4-8.2); eGFR 23 ML/MIN
[2021-07-18 14:55] LABS: PARTIAL THROMBOPLASTIN TIME 31 SECONDS (22-32)
[2021-07-18] MEDS ORDERED: FURO40TA4 PO (15:16)
[2021-07-18] MEDS ORDERED: furosemide 20 MG/2 ML vial IV ONE (16:35)
[2021-07-18] MEDS ORDERED: diltiazem-NS 100mg/100ml 100 ML IV SCH (16:45)
[2021-07-18] MEDS ORDERED: mag hydrox/Alum hydrox/simeth 30ml oral suspension PO PRN (17:20)
[2021-07-18] MEDS ORDERED: magnesium hydroxide 30ml (MOM) UD suspension PO PRN (17:20)
[2021-07-18] MEDS ORDERED: ondansetron/PF 4mg/2ml inj IV PRN (17:20)
[2021-07-18] MEDS ORDERED: acetaminophen 325mg tablet PO PRN (17:20)
[2021-07-18] MEDS ORDERED: non-formulary drug (Ketotifen Fumarate 1 DROP) EACHEYE PRN (17:25)
[2021-07-18] MEDS ORDERED: cetirizine 10mg tablet PO PRN (17:25)
--- NOTE | 2021-07-18 18:50 | NUR ---
Patient resting comfortably in bed. He is provided his call levine and updated on POC. No distress.
[2021-07-18] MEDS ORDERED: non-formulary drug (Vit C/E/Zn/Coppr/Lutein/Zeaxan (Preservision Areds 2 Softgel) 1 CAP) PO SCH (20:00)
[2021-07-18] MEDS: apixaban 5mg tablet PO SCH (20:00)
[2021-07-18] MEDS: OMEGA-3/DHA/EPA/FISH OIL 1 EACH CAPSULE.DR PO SCH (22:14)
[2021-07-18] MEDS: traZODone 50mg tablet PO SCH (22:14)
[2021-07-18] MEDS: docusate sod 100mg capsule PO SCH (22:14)
[2021-07-18] MEDS: carVEDilol 12.5mg tablet PO SCH (22:14)
[2021-07-18] MEDS: buPROPion 75mg tablet PO SCH (22:14)
[2021-07-18] MEDS: furosemide 40mg/4ml inj IV SCH (22:15)
[2021-07-19 02:00] VITALS: BP 97/69
[2021-07-19 06:00] VITALS: BP 106/88
[2021-07-19 06:56] LABS: BASOPHILS % (AUTO) 0.4 % (0-1); EOSINOPHILS # (AUTO) 0.3 X10'3 (0-0.9); EOSINOPHILS % (AUTO) 3.6 % (0-6); HEMATOCRIT 30.9 % (42.0-52.0); HEMOGLOBIN 10.5 g/dl (14.0-17.9); LYMPHOCYTES # (AUTO) 0.5 X10'3 (1.1-4.8); LYMPHOCYTES % (AUTO) 6.9 % (21-51); MEAN CORPUSCULAR VOLUME 85.4 FL (78-98); MEAN PLATELET VOLUME 8.6 FL (7.4-10.4); MONOCYTES # (AUTO) 0.9 X10'3 (0-0.9); MONOCYTES % (AUTO) 11.9 % (2-12); NEUTROPHILS # (AUTO) 5.7 X10'3 (1.8-7.7); NEUTROPHILS % (AUTO) 77.2 % (42-75); PLATELET COUNT 155 X10'3 (140-440); RED BLOOD COUNT 3.61 X10'6 (4.70-6.10); RED CELL DISTRIBUTION WIDTH 16.3 % (11.5-14.5); WHITE BLOOD COUNT 7.4 X10'3 (4.5-11.0)
--- NOTE | 2021-07-19 07:21 | NUR ---
Patient in room PCU 3015. I have received report from FREDERICK Perez and had the opportunity to ask questions and assume patient care.
[2021-07-19 07:41] LABS: ANION GAP 7 (8-16); BLOOD UREA NITROGEN 34 MG/DL (7-18); BUN/CREATININE RATIO 13.9 (5.4-32.0); CALCIUM 8.4 MG/DL (8.5-10.1); CHLORIDE 102 MMOL/L (99-107); CREATININE 2.45 MG/DL (0.60-1.10); GLUCOSE 85 MG/DL (70-104); POTASSIUM 3.4 MMOL/L (3.5-5.1); SODIUM 142 MMOL/L (135-145); TOTAL CARBON DIOXIDE 33.2 MMOL/L (24-32); eGFR 26 ML/MIN
[2021-07-19] MEDS: STIOLTO RESPIMAT PO SCH (08:00)
[2021-07-19] MEDS: furosemide 40mg/4ml inj IV SCH ×2 (08:00→20:09)
[2021-07-19] MEDS ORDERED: potassium Cl 20 mEq SR tablet PO SCH (08:00)
--- NOTE | 2021-07-19 09:00 | NUR ---
Lasix 40 hold until the b/p improves. Potassium 4.5
--- NOTE | 2021-07-19 09:00 | NUR ---
By order Dr. Sr the Cardize drip was stop after the patient present B/P .
[2021-07-19] MEDS: sertraline 50mg tablet PO SCH (09:30)
[2021-07-19] MEDS: docusate sod 100mg capsule PO SCH ×2 (09:31→20:09)
[2021-07-19] MEDS: apixaban 5mg tablet PO SCH ×2 (09:31→20:09)
[2021-07-19] MEDS: levoTHYROXINE 112mcg tablet PO SCH (09:31)
[2021-07-19] MEDS: OMEGA-3/DHA/EPA/FISH OIL 1 EACH CAPSULE.DR PO SCH ×2 (09:31→20:09)
[2021-07-19] MEDS: atorvastatin 20mg tablet PO SCH (09:31)
[2021-07-19] MEDS: carVEDilol 12.5mg tablet PO SCH ×2 (09:32→20:09)
[2021-07-19] MEDS: multivitamins, therapeutics tablet PO SCH (09:32)
[2021-07-19] MEDS: cyanocobalamin 500mcg tablet PO SCH (09:32)
[2021-07-19] MEDS: predniSONE 1 mg tablet PO SCH (09:33)
[2021-07-19] MEDS: tamsulosin 0.4mg capsule PO SCH (09:33)
[2021-07-19] MEDS: buPROPion 75mg tablet PO SCH ×2 (09:33→20:09)
[2021-07-19] MEDS: ezetimibe 10mg tablet PO SCH (09:33)
[2021-07-19 11:00] VITALS: BP 98/62
[2021-07-19 15:00] VITALS: BP 111/86
[2021-07-19 18:00] VITALS: BP 95/71
[2021-07-19] MEDS: traZODone 50mg tablet PO SCH (20:08)
[2021-07-19 22:00] VITALS: BP 103/78
[2021-07-20 02:00] VITALS: BP 93/68
[2021-07-20 06:00] VITALS: BP 90/70
[2021-07-20 06:22] LABS: BASOPHILS % (AUTO) 0.5 % (0-1); EOSINOPHILS # (AUTO) 0.3 X10'3 (0-0.9); EOSINOPHILS % (AUTO) 4.2 % (0-6); HEMATOCRIT 32.9 % (42.0-52.0); HEMOGLOBIN 10.8 g/dl (14.0-17.9); LYMPHOCYTES # (AUTO) 0.6 X10'3 (1.1-4.8); LYMPHOCYTES % (AUTO) 8.3 % (21-51); MEAN CORPUSCULAR HEMOGLOBIN 28.6 PG (27.0-31.0); MEAN CORPUSCULAR VOLUME 86.8 FL (78-98); MEAN PLATELET VOLUME 8.7 FL (7.4-10.4); MONOCYTES # (AUTO) 0.8 X10'3 (0-0.9); NEUTROPHILS # (AUTO) 5.7 X10'3 (1.8-7.7); PLATELET COUNT 165 X10'3 (140-440); RED BLOOD COUNT 3.78 X10'6 (4.70-6.10); RED CELL DISTRIBUTION WIDTH 16.1 % (11.5-14.5); WHITE BLOOD COUNT 7.5 X10'3 (4.5-11.0)
[2021-07-20 06:37] LABS: ANION GAP 8 (8-16); BLOOD UREA NITROGEN 33 MG/DL (7-18); BUN/CREATININE RATIO 14.3 (5.4-32.0); CALCIUM 8.1 MG/DL (8.5-10.1); CHLORIDE 100 MMOL/L (99-107); CREATININE 2.31 MG/DL (0.60-1.10); GLUCOSE 86 MG/DL (70-104); POTASSIUM 3.5 MMOL/L (3.5-5.1); SODIUM 142 MMOL/L (135-145); TOTAL CARBON DIOXIDE 33.8 MMOL/L (24-32); eGFR 28 ML/MIN
[2021-07-20] MEDS: sertraline 50mg tablet PO SCH (07:47)
[2021-07-20] MEDS: docusate sod 100mg capsule PO SCH (07:47)
[2021-07-20] MEDS: tamsulosin 0.4mg capsule PO SCH (07:48)
[2021-07-20] MEDS: levoTHYROXINE 112mcg tablet PO SCH (07:48)
[2021-07-20] MEDS: multivitamins, therapeutics tablet PO SCH (07:48)
[2021-07-20] MEDS: apixaban 5mg tablet PO SCH (07:48)
[2021-07-20] MEDS: atorvastatin 20mg tablet PO SCH (07:48)
[2021-07-20] MEDS: OMEGA-3/DHA/EPA/FISH OIL 1 EACH CAPSULE.DR PO SCH (07:48)
[2021-07-20] MEDS: buPROPion 75mg tablet PO SCH (07:48)
[2021-07-20] MEDS: cyanocobalamin 500mcg tablet PO SCH (07:48)
[2021-07-20] MEDS: predniSONE 1 mg tablet PO SCH (07:49)
[2021-07-20] MEDS: ezetimibe 10mg tablet PO SCH (07:49)
[2021-07-20] MEDS: carVEDilol 12.5mg tablet PO SCH (07:49)
[2021-07-20] MEDS: STIOLTO RESPIMAT PO SCH (07:54)
--- NOTE | 2021-07-20 12:16 | NUR ---
Patient discharge alert and orient. Instruction discussed and readback. personal belong was carried by the patient.
== END 2021-07-20 12:11 | disposition home health service (06) | DRG 308 ==
LOC: ER 12:03 → ED HOLD 17:22 → PCU 3S 23:10
PROVIDERS: ADMIT Family Medicine; ATTEND Family Medicine
DX: I48.91 Unspecified atrial fibrillation (principal); I50.23 Acute on chronic systolic (congestive) heart failure; J96.10 Chronic respiratory failure, unspecified whether with hypoxia or hypercapnia; I13.0 Hypertensive heart and chronic kidney disease with heart failure and stage 1 through stage 4 chronic kidney disease, or unspecified chronic kidney disease; I25.10 Atherosclerotic heart disease of native coronary artery without angina pectoris; N18.9 Chronic kidney disease, unspecified; E11.22 Type 2 diabetes mellitus with diabetic chronic kidney disease; E03.9 Hypothyroidism, unspecified; Z20.822 Contact with and (suspected) exposure to COVID-19; E78.00 Pure hypercholesterolemia, unspecified; I95.9 Hypotension, unspecified; E78.5 Hyperlipidemia, unspecified; F32.A Depression, unspecified; I44.7 Left bundle-branch block, unspecified; Z90.49 Acquired absence of other specified parts of digestive tract; I25.2 Old myocardial infarction; Z79.899 Other long term (current) drug therapy; Z95.810 Presence of automatic (implantable) cardiac defibrillator
CPT/HCPCS: 36415; 71045; 80048; 80053; 82948; 83605; 83880; 84484; 85025; 85610; 85730; 87040; 87077; 87081; 87635; 93005; 96365; 99285; C9803; G0378; J1940; J3490; J7512

== ENCOUNTER 2021-07-27 13:03 | Emergency (ER) | payer OTHER, BC ==
[~2021-07-27] VITALS: Ht 177.8 cm; Wt 82.7 kg
[~2021-07-27 13:03] MED LIST changes: -FURO-149 PO; +FURO40TA4 PO
[2021-07-27] MEDS ORDERED: ipratropium/albuterol 3ml nebule NEB ONE (13:25)
[2021-07-27] MEDS ORDERED: diltiazem 5mg/ml 5ml inj. IV ONE (13:50)
[2021-07-27] MEDS ORDERED: furosemide 10 MG/1 ML 10ml inj IV ONE (13:50)
[2021-07-27 14:13] LABS: BASOPHILS # (AUTO) 0.1 X10'3 (0-0.2); BASOPHILS % (AUTO) 0.8 % (0-1); EOSINOPHILS # (AUTO) 0.1 X10'3 (0-0.9); HEMATOCRIT 35.1 % (42.0-52.0); HEMOGLOBIN 11.5 g/dl (14.0-17.9); LYMPHOCYTES # (AUTO) 0.4 X10'3 (1.1-4.8); LYMPHOCYTES % (AUTO) 4.4 % (21-51); MEAN CORPUSCULAR HEMOGLOBIN 28.6 PG (27.0-31.0); MEAN CORPUSCULAR HGB CONC 32.8 g/dL (33.0-36.5); MEAN PLATELET VOLUME 8.4 FL (7.4-10.4); MONOCYTES # (AUTO) 0.7 X10'3 (0-0.9); MONOCYTES % (AUTO) 6.9 % (2-12); NEUTROPHILS # (AUTO) 8.4 X10'3 (1.8-7.7); NEUTROPHILS % (AUTO) 86.9 % (42-75); PLATELET COUNT 187 X10'3 (140-440); RED BLOOD COUNT 4.03 X10'6 (4.70-6.10); RED CELL DISTRIBUTION WIDTH 16.9 % (11.5-14.5); WHITE BLOOD COUNT 9.7 X10'3 (4.5-11.0)
[2021-07-27 14:36] VITALS: BP 115/75
[2021-07-27 14:38] LABS: ALANINE AMINOTRANSFERASE 29 U/L (12-78); ALBUMIN 3.4 G/DL (3.4-5.0); ALKALINE PHOSPHATASE 85 IU/L (46-116); ANION GAP 9 (8-16); ASPARTATE AMINO TRANSFERASE 25 U/L (10-37); BLOOD UREA NITROGEN 46 MG/DL (7-18); BUN/CREATININE RATIO 21.4 (5.4-32.0); CALCIUM 9.1 MG/DL (8.5-10.1); CHLORIDE 103 MMOL/L (99-107); CREATININE 2.15 MG/DL (0.60-1.10); GLUCOSE 96 MG/DL (70-104); POTASSIUM 3.6 MMOL/L (3.5-5.1); SODIUM 143 MMOL/L (135-145); TOTAL CARBON DIOXIDE 30.6 MMOL/L (24-32); TOTAL PROTEIN 6.9 G/DL (6.4-8.2); eGFR 30 ML/MIN
[2021-07-27 14:43] LABS: BILIRUBIN,TOTAL 0.8 MG/DL (0.1-1.0)
== END 2021-07-27 18:18 | disposition home or self-care (01) ==
LOC: ER 13:04
DX: I13.0 Hypertensive heart and chronic kidney disease with heart failure and stage 1 through stage 4 chronic kidney disease, or unspecified chronic kidney disease (principal); E11.22 Type 2 diabetes mellitus with diabetic chronic kidney disease; N18.9 Chronic kidney disease, unspecified; I48.91 Unspecified atrial fibrillation; R06.02 Shortness of breath; I25.10 Atherosclerotic heart disease of native coronary artery without angina pectoris; E78.00 Pure hypercholesterolemia, unspecified; I25.2 Old myocardial infarction; Z90.89 Acquired absence of other organs; Z95.0 Presence of cardiac pacemaker; Z98.890 Other specified postprocedural states; Z88.8 Allergy status to other drugs, medicaments and biological substances; Z79.899 Other long term (current) drug therapy
CPT/HCPCS: 36415; 71045; 80053; 83880; 84484; 85025; 93005; 94640; 96374; 96375; 99285; J1940; J3490

== ENCOUNTER 2022-02-23 21:51 | Inpatient (IN) | payer OTHER, BC ==
[~2022-02-23] VITALS: Ht 160 cm; Wt 75.0 kg
[2022-02-23 23:24] LABS: ABG BASE EXCESS 3.9 mmol/L (-2.0-2.0); ABG HCO3 27.5 mmol/L (22.0-26.0); ABG OXYGEN SATURATION 90.8 % (94-97); ABG PCO2 (T) 37.3 mmHg (35.0-48.0); ABG PO2 (T) 59.4 mmHg (75.0-100.0); ALLEN'S TEST Yes; FCOHb 1.1 % (0.0-3.9); FMetHb 0.3 % (0.0-1.5); FO2Hb 89.5 % (94-97); PATIENT TEMPERATURE 36.7; TOTAL HEMOGLOBIN 11.3 G/dl (14.0-18.0)
[2022-02-23 23:37] LABS: BASOPHILS # (AUTO) 0.1 X10'3 (0-0.2); BASOPHILS % (AUTO) 1.1 % (0-1); EOSINOPHILS # (AUTO) 0.3 X10'3 (0-0.9); EOSINOPHILS % (AUTO) 4.7 % (0-6); HEMATOCRIT 33.7 % (42.0-52.0); HEMOGLOBIN 10.9 g/dl (14.0-17.9); LYMPHOCYTES # (AUTO) 0.6 X10'3 (1.1-4.8); MEAN CORPUSCULAR HEMOGLOBIN 27.6 PG (27.0-31.0); MEAN CORPUSCULAR HGB CONC 32.5 g/dL (33.0-36.5); MEAN CORPUSCULAR VOLUME 84.9 FL (78-98); MEAN PLATELET VOLUME 8.1 FL (7.4-10.4); MONOCYTES # (AUTO) 0.7 X10'3 (0-0.9); MONOCYTES % (AUTO) 9.9 % (2-12); NEUTROPHILS # (AUTO) 5.3 X10'3 (1.8-7.7); NEUTROPHILS % (AUTO) 76.3 % (42-75); PLATELET COUNT 183 X10'3 (140-440); RED BLOOD COUNT 3.97 X10'6 (4.70-6.10); RED CELL DISTRIBUTION WIDTH 18.4 % (11.5-14.5)
[2022-02-23 23:46] LABS: FLOW 2 L/min
[2022-02-23 23:51] LABS: ALANINE AMINOTRANSFERASE 21 U/L (12-78); ALBUMIN 3.4 G/DL (3.4-5.0); ALBUMIN/GLOBULIN RATIO 0.9 (1.1-1.5); ALKALINE PHOSPHATASE 98 IU/L (46-116); ANION GAP 7 (8-16); ASPARTATE AMINO TRANSFERASE 27 U/L (10-37); BILIRUBIN,TOTAL 1.4 MG/DL (0.1-1.0); BLOOD UREA NITROGEN 34 MG/DL (7-18); BUN/CREATININE RATIO 14.4 (5.4-32.0); CHLORIDE 103 MMOL/L (99-107); CREATININE 2.36 MG/DL (0.60-1.10); GLUCOSE 122 MG/DL (70-104); POTASSIUM 3.7 MMOL/L (3.5-5.1); SODIUM 141 MMOL/L (135-145); TOTAL CARBON DIOXIDE 31.5 MMOL/L (24-32); TOTAL PROTEIN 7.3 G/DL (6.4-8.2); eGFR 27 ML/MIN
[2022-02-24 00:01] LABS: ETHANOL < 0.010 GM/DL (0.0-0.010); MAGNESIUM 2.5 MG/DL (1.5-2.4)
[2022-02-24] MEDS: normal saline 500ml IV soln 500 ML IV SCH ×2 (01:16→05:50)
[2022-02-24] MEDS ORDERED: mag hydrox/Alum hydrox/simeth 30ml oral suspension PO PRN (02:20)
[2022-02-24] MEDS ORDERED: diphenhydrAMINE 25mg capsule PO PRN (02:20)
[2022-02-24] MEDS ORDERED: magnesium hydroxide 30ml (MOM) UD suspension PO PRN (02:20)
[2022-02-24] MEDS ORDERED: HYDROcodone/acetaminophen 10/325mg tab PO PRN (02:20)
[2022-02-24] MEDS ORDERED: acetaminophen 325mg tablet PO PRN ×2 (02:20)
[2022-02-24] MEDS ORDERED: bisacodyl 10mg suppository rectal RC PRN (02:20)
[2022-02-24] MEDS ORDERED: HYDROcodone/acetaminophen 5mg/325mg tablet PO PRN (02:20)
[2022-02-24] MEDS ORDERED: diphenhydrAMINE 50 mg/ml inj IV PRN (02:20)
[2022-02-24] MEDS ORDERED: normal saline 1000ml 1,000 ML IV SCH (02:20)
[2022-02-24] MEDS ORDERED: ondansetron/PF 4mg/2ml inj IV PRN (02:20)
[2022-02-24] MEDS ORDERED: acetaminophen 650mg rectal suppository RC PRN (02:20)
[2022-02-24] MEDS ORDERED: MESSAGE TO PHARMACY PO ONE (02:25)
[2022-02-24] MEDS ORDERED: DEXTROSE 15 GM of carb/4 tabs (each vial/BOTTLE has 4 tablets) PO PRN ×2 (02:25)
[2022-02-24] MEDS ORDERED: glucagon, human recombinant 1mg kit SUBCUT PRN (02:25)
[2022-02-24] MEDS ORDERED: dextrose 50%-water 50ml dispensing syringe IV PRN ×2 (02:25)
[2022-02-24] MEDS ORDERED: insulin Lispro (HumaLOG) vial - multi-dose SQ SCH (02:25)
[2022-02-24] MEDS ORDERED: azithromycin/NS 500mg/250ml 250 ML IV ONE (02:35)
[2022-02-24 03:45] LABS: APTT 32 SECONDS (22-32); D-DIMER 0.55 MG/L FEU (0-0.50)
[2022-02-24 03:48] LABS: HEMOGLOBIN A1C 5.4 % (4.5-6.2)
[2022-02-24 03:55] LABS: CREATINE KINASE 58 U/L (39-308); LIPASE < 50 U/L (73-393); PHOSPHORUS 3.6 MG/DL (2.3-4.5)
[2022-02-24] MEDS: ondansetron 4mg rapidly disintigrating tab PO PRN (04:33)
[2022-02-24] MEDS: sertraline 50mg tablet PO SCH (07:43)
[2022-02-24] MEDS: buPROPion 75mg tablet PO SCH ×2 (07:44→21:11)
[2022-02-24] MEDS: tamsulosin 0.4mg capsule PO SCH (07:44)
[2022-02-24] MEDS: pantoprazole 40mg Tablet.DR PO SCH (07:44)
[2022-02-24] MEDS: ezetimibe 10mg tablet PO SCH (07:44)
[2022-02-24] MEDS: atorvastatin 20mg tablet PO SCH (07:44)
[2022-02-24] MEDS: docusate sod 100mg capsule PO SCH ×2 (07:45→21:14)
[2022-02-24] MEDS: CefTRIAXone/D5W-Rocephin 1gm 50 ML IV SCH (07:45)
[2022-02-24] MEDS ORDERED: furosemide 10 MG/1 ML 10ml inj IV SCH (08:00)
[2022-02-24] MEDS: Tiotropium Br/Olodaterol HCl (Stiolto Respimat Inhal Spray) PO SCH (08:00)
[2022-02-24] MEDS ORDERED: levoTHYROXINE 112mcg tablet PO SCH (08:00)
[2022-02-24] MEDS: apixaban 5mg tablet PO SCH ×2 (08:33→21:13)
[2022-02-24] MEDS: predniSONE 1 mg tablet PO SCH (08:56)
[2022-02-24] MEDS ORDERED: cetirizine 10mg tablet PO PRN (16:10)
[2022-02-24] MEDS ORDERED: carVEDilol 12.5mg tablet PO SCH ×2 (16:35)
[2022-02-24] MEDS ORDERED: temazepam 15mg capsule PO PRN (21:00)
[2022-02-24] MEDS: traZODone 50mg tablet PO SCH (21:14)
[2022-02-24] MEDS: furosemide 40mg/4ml inj IV SCH (21:36)
[2022-02-24] MEDS: carVEDilol 12.5mg tablet PO SCH (21:36)
--- NOTE | 2022-02-24 21:38 | NUR ---
BP 87/63. NORMAL PER PT. AWARE. LASIX AND COREG HELD.
[2022-02-25 04:46] LABS: CLARITY,URINE CLEAR (Clear); GLUCOSE, URINE NEGATIVE (Neg); KETONES,URINE NEGATIVE (Neg); LEUKOCYTE ESTERASE ,URINE NEGATIVE (Neg); NITRITES, URINE NEGATIVE (Neg); OCCULT BLOOD,URINE NEGATIVE (Neg); PH,URINE 5.5 (4.8-8.0); PROTEIN,URINE NEGATIVE (Neg); UROBILINOGEN,URINE 0.2 E.U/dL (0.2-1.0)
[2022-02-25 04:48] LABS: COLOR,URINE DARK YELLOW (Yellow); UA COLLECTION TYPE CLN CATCH MIDSTREAM
[2022-02-25 05:16] LABS: URINE AMPHETAMINE SCREEN NEGATIVE (Neg); URINE BARBITUATE SCREEN NEGATIVE (Neg); URINE BENZODIAZEPINES SCREEN NEGATIVE (Neg); URINE CANNABINOID SCREEN NEGATIVE (Neg); URINE COCAINE SCREEN NEGATIVE (Neg); URINE METHADONE SCREEN NEGATIVE (Neg); URINE OPIATE SCREEN NEGATIVE (Neg); URINE PHENCYCLIDINE SCREEN NEGATIVE (Neg)
[2022-02-25 07:31] LABS: BASOPHILS % (AUTO) 0.7 % (0-1); EOSINOPHILS # (AUTO) 0.3 X10'3 (0-0.9); EOSINOPHILS % (AUTO) 4.9 % (0-6); HEMATOCRIT 33.7 % (42.0-52.0); HEMOGLOBIN 10.9 g/dl (14.0-17.9); LYMPHOCYTES # (AUTO) 0.5 X10'3 (1.1-4.8); MEAN CORPUSCULAR HEMOGLOBIN 27.4 PG (27.0-31.0); MEAN CORPUSCULAR HGB CONC 32.2 g/dL (33.0-36.5); MEAN CORPUSCULAR VOLUME 84.9 FL (78-98); MEAN PLATELET VOLUME 8.3 FL (7.4-10.4); MONOCYTES # (AUTO) 0.7 X10'3 (0-0.9); MONOCYTES % (AUTO) 10.5 % (2-12); NEUTROPHILS # (AUTO) 5.2 X10'3 (1.8-7.7); NEUTROPHILS % (AUTO) 76.9 % (42-75); PLATELET COUNT 171 X10'3 (140-440); RED BLOOD COUNT 3.97 X10'6 (4.70-6.10); RED CELL DISTRIBUTION WIDTH 18.2 % (11.5-14.5); WHITE BLOOD COUNT 6.7 X10'3 (4.5-11.0)
[2022-02-25] MEDS: buPROPion 75mg tablet PO SCH ×2 (07:51→20:28)
[2022-02-25] MEDS: apixaban 5mg tablet PO SCH ×2 (07:51→20:29)
[2022-02-25] MEDS: ezetimibe 10mg tablet PO SCH (07:52)
[2022-02-25] MEDS: docusate sod 100mg capsule PO SCH ×2 (07:52→20:29)
[2022-02-25 07:53] LABS: ALANINE AMINOTRANSFERASE 211 U/L (12-78); ALBUMIN 3.3 G/DL (3.4-5.0); ALBUMIN/GLOBULIN RATIO 0.8 (1.1-1.5); ALKALINE PHOSPHATASE 100 IU/L (46-116); ANION GAP 9 (8-16); ASPARTATE AMINO TRANSFERASE 233 U/L (10-37); BILIRUBIN,TOTAL 1.1 MG/DL (0.1-1.0); BLOOD UREA NITROGEN 40 MG/DL (7-18); BUN/CREATININE RATIO 14.9 (5.4-32.0); CALCIUM 8.7 MG/DL (8.5-10.1); CHLORIDE 102 MMOL/L (99-107); CHOL/HDL RATIO 2.3 (0.00-4.99); CHOLESTEROL 90 MG/DL (0-200); CREATININE 2.68 MG/DL (0.60-1.10); GLUCOSE 77 MG/DL (70-104); HDL CHOLESTEROL 40 MG/DL (35-60); LDL CHOLESTEROL 41 MG/DL (50-100); SODIUM 142 MMOL/L (135-145); TOTAL CARBON DIOXIDE 30.7 MMOL/L (24-32); TOTAL PROTEIN 7.2 G/DL (6.4-8.2); TRIGLYCERIDES 54 MG/DL (20-135); eGFR 23 ML/MIN
[2022-02-25] MEDS: atorvastatin 20mg tablet PO SCH (07:53)
[2022-02-25] MEDS: CefTRIAXone/D5W-Rocephin 1gm 50 ML IV SCH (07:54)
[2022-02-25] MEDS: azithromycin/NS 500mg/250ml 250 ML IV SCH (07:54)
[2022-02-25] MEDS: furosemide 40mg/4ml inj IV SCH ×2 (07:55→20:30)
[2022-02-25] MEDS: pantoprazole 40mg Tablet.DR PO SCH (07:55)
[2022-02-25] MEDS: Tiotropium Br/Olodaterol HCl (Stiolto Respimat Inhal Spray) PO SCH (08:00)
[2022-02-25] MEDS: carVEDilol 12.5mg tablet PO SCH ×2 (08:00→20:30)
[2022-02-25] MEDS ORDERED: levoTHYROXINE 112mcg tablet PO SCH (08:00)
[2022-02-25 08:02] LABS: POTASSIUM 4.6 MMOL/L (3.5-5.1)
[2022-02-25] MEDS: tamsulosin 0.4mg capsule PO SCH (08:02)
[2022-02-25] MEDS: sertraline 50mg tablet PO SCH (08:02)
[2022-02-25] MEDS: predniSONE 1 mg tablet PO SCH (09:33)
--- NOTE | 2022-02-25 14:31 | NUR ---
Patient in room ED 8. I have received report from FREDERICK DIAMOND FROM ER and had the opportunity to ask questions and assume patient care.
[2022-02-25 15:00] VITALS: BP 103/71
[2022-02-25 18:00] VITALS: BP 107/77
--- NOTE | 2022-02-25 19:37 | NUR ---
Problems reprioritized. Patient report given, questions answered & plan of care reviewed with FREDERICK CLEMENTS.
[2022-02-25] MEDS: traZODone 50mg tablet PO SCH (20:29)
[2022-02-25 22:00] VITALS: BP 100/62
[2022-02-26 02:00] VITALS: BP 106/50
[2022-02-26 06:05] LABS: BASOPHILS # (AUTO) 0.1 X10'3 (0-0.2); EOSINOPHILS # (AUTO) 0.3 X10'3 (0-0.9); EOSINOPHILS % (AUTO) 4.1 % (0-6); HEMATOCRIT 30.5 % (42.0-52.0); HEMOGLOBIN 9.9 g/dl (14.0-17.9); LYMPHOCYTES # (AUTO) 0.4 X10'3 (1.1-4.8); LYMPHOCYTES % (AUTO) 6.5 % (21-51); MEAN CORPUSCULAR HEMOGLOBIN 27.8 PG (27.0-31.0); MEAN CORPUSCULAR HGB CONC 32.4 g/dL (33.0-36.5); MEAN CORPUSCULAR VOLUME 86.1 FL (78-98); MEAN PLATELET VOLUME 8.2 FL (7.4-10.4); MONOCYTES # (AUTO) 0.8 X10'3 (0-0.9); MONOCYTES % (AUTO) 12.1 % (2-12); NEUTROPHILS # (AUTO) 5.2 X10'3 (1.8-7.7); NEUTROPHILS % (AUTO) 76.3 % (42-75); PLATELET COUNT 153 X10'3 (140-440); RED BLOOD COUNT 3.55 X10'6 (4.70-6.10); RED CELL DISTRIBUTION WIDTH 17.9 % (11.5-14.5); WHITE BLOOD COUNT 6.8 X10'3 (4.5-11.0)
[2022-02-26 06:26] LABS: ALANINE AMINOTRANSFERASE 510 U/L (12-78); ALBUMIN/GLOBULIN RATIO 0.8 (1.1-1.5); ALKALINE PHOSPHATASE 103 IU/L (46-116); ANION GAP 8 (8-16); ASPARTATE AMINO TRANSFERASE 522 U/L (10-37); BLOOD UREA NITROGEN 49 MG/DL (7-18); BUN/CREATININE RATIO 15.7 (5.4-32.0); CALCIUM 8.1 MG/DL (8.5-10.1); CHLORIDE 101 MMOL/L (99-107); CREATININE 3.12 MG/DL (0.60-1.10); GLUCOSE 84 MG/DL (70-104); POTASSIUM 4.1 MMOL/L (3.5-5.1); SODIUM 138 MMOL/L (135-145); TOTAL CARBON DIOXIDE 29.4 MMOL/L (24-32); TOTAL PROTEIN 6.6 G/DL (6.4-8.2); eGFR 19 ML/MIN
[2022-02-26 07:17] VITALS: BP 97/63
[2022-02-26] MEDS: furosemide 40mg/4ml inj IV SCH ×2 (08:00→19:09)
[2022-02-26] MEDS: Tiotropium Br/Olodaterol HCl (Stiolto Respimat Inhal Spray) PO SCH (08:00)
[2022-02-26] MEDS: carVEDilol 12.5mg tablet PO SCH ×2 (08:00→19:09)
[2022-02-26] MEDS: CefTRIAXone/D5W-Rocephin 1gm 50 ML IV SCH (09:02)
[2022-02-26] MEDS: apixaban 5mg tablet PO SCH ×2 (09:02→19:07)
[2022-02-26] MEDS: buPROPion 75mg tablet PO SCH ×2 (09:03→19:07)
[2022-02-26] MEDS: predniSONE 1 mg tablet PO SCH (09:03)
[2022-02-26] MEDS: tamsulosin 0.4mg capsule PO SCH (09:03)
[2022-02-26] MEDS: docusate sod 100mg capsule PO SCH ×2 (09:03→19:07)
[2022-02-26] MEDS: sertraline 50mg tablet PO SCH (09:03)
[2022-02-26] MEDS: pantoprazole 40mg Tablet.DR PO SCH (09:07)
--- NOTE | 2022-02-26 10:34 | NUR ---
PAGER ID: [phone] MESSAGE: [id number]- Kilo Maldonado- got up to work with PT. c/o lightheadedness. Returned to bed 87/59 HR 104. Did not receive Lasix or coreg this morning. Thank you- Zach [phone]
--- NOTE | 2022-02-26 10:57 | NUR ---
PAGER ID: [phone] MESSAGE: [id number]- Kilo Maldonado- pt BP now 104/69 74. Appears to be sleeping comfortably.- Zach Ojeda Will continue to monitor.
[2022-02-26 11:00] VITALS: BP 104/69
[2022-02-26] MEDS: azithromycin/NS 500mg/250ml 250 ML IV SCH (11:23)
[2022-02-26 12:27] LABS: HBSAG SCREEN Negative (Negative); HEP A AB, IGM Negative (Negative)
--- NOTE | 2022-02-26 14:31 | NUR ---
PAGER ID: [phone] MESSAGE: [id number]- Kilo Maldonado- pt c/o neck pain. ok to order ibuprofen? - Zach [phone]
--- NOTE | 2022-02-26 14:40 | NUR ---
PAGER ID: [phone] MESSAGE: [id number]- tomas alberto-bp 91/70 hr 91. did not get coreg or Lasix this morning. ok to give morphine still?- Zach [phone]
[2022-02-26 15:00] VITALS: BP 91/70
[2022-02-26] MEDS: morphine 4 MG/ML inj SYRINge IV PRN (17:36)
[2022-02-26 18:00] VITALS: BP 107/75
--- NOTE | 2022-02-26 18:36 | NUR ---
Problems reprioritized. Patient report given, questions answered & plan of care reviewed with FREDERICK Boyd.
[2022-02-26] MEDS: traZODone 50mg tablet PO SCH (20:31)
[2022-02-26 22:00] VITALS: BP 148/117
[2022-02-27] VITALS: BP 109/73
[2022-02-27 05:52] LABS: BASOPHILS # (AUTO) 0.1 X10'3 (0-0.2); BASOPHILS % (AUTO) 0.9 % (0-1); EOSINOPHILS # (AUTO) 0.4 X10'3 (0-0.9); EOSINOPHILS % (AUTO) 4.5 % (0-6); HEMATOCRIT 32.6 % (42.0-52.0); HEMOGLOBIN 10.5 g/dl (14.0-17.9); LYMPHOCYTES # (AUTO) 0.4 X10'3 (1.1-4.8); LYMPHOCYTES % (AUTO) 5.4 % (21-51); MEAN CORPUSCULAR HEMOGLOBIN 27.7 PG (27.0-31.0); MEAN CORPUSCULAR HGB CONC 32.2 g/dL (33.0-36.5); MEAN CORPUSCULAR VOLUME 85.9 FL (78-98); MEAN PLATELET VOLUME 8.2 FL (7.4-10.4); MONOCYTES % (AUTO) 12.6 % (2-12); NEUTROPHILS % (AUTO) 76.6 % (42-75); PLATELET COUNT 146 X10'3 (140-440); WHITE BLOOD COUNT 7.8 X10'3 (4.5-11.0)
[2022-02-27 06:00] VITALS: BP 110/52
[2022-02-27 06:10] LABS: ALANINE AMINOTRANSFERASE 649 U/L (12-78); ALBUMIN 3.2 G/DL (3.4-5.0); ALBUMIN/GLOBULIN RATIO 0.9 (1.1-1.5); ALKALINE PHOSPHATASE 120 IU/L (46-116); ANION GAP 9 (8-16); ASPARTATE AMINO TRANSFERASE 524 U/L (10-37); BILIRUBIN,TOTAL 0.7 MG/DL (0.1-1.0); BLOOD UREA NITROGEN 52 MG/DL (7-18); BUN/CREATININE RATIO 16.4 (5.4-32.0); CALCIUM 8.4 MG/DL (8.5-10.1); CHLORIDE 101 MMOL/L (99-107); CREATININE 3.18 MG/DL (0.60-1.10); GLUCOSE 82 MG/DL (70-104); POTASSIUM 3.9 MMOL/L (3.5-5.1); SODIUM 141 MMOL/L (135-145); TOTAL CARBON DIOXIDE 30.6 MMOL/L (24-32); TOTAL PROTEIN 6.9 G/DL (6.4-8.2); eGFR 19 ML/MIN
--- NOTE | 2022-02-27 06:43 | NUR ---
Patient in room PCU 3025. I have received report from FREDERICK Giles and had the opportunity to ask questions and assume patient care.
[2022-02-27] MEDS: CefTRIAXone/D5W-Rocephin 1gm 50 ML IV SCH (07:40)
[2022-02-27] MEDS: furosemide 40mg/4ml inj IV SCH ×2 (07:40→21:14)
[2022-02-27] MEDS: azithromycin/NS 500mg/250ml 250 ML IV SCH (07:40)
[2022-02-27] MEDS: sertraline 50mg tablet PO SCH (07:41)
[2022-02-27] MEDS: predniSONE 1 mg tablet PO SCH (07:41)
[2022-02-27] MEDS: levoTHYROXINE 125mcg tablet PO SCH (07:41)
[2022-02-27] MEDS: apixaban 5mg tablet PO SCH ×2 (07:41→21:11)
[2022-02-27] MEDS: buPROPion 75mg tablet PO SCH ×2 (07:41→21:13)
[2022-02-27] MEDS: carVEDilol 12.5mg tablet PO SCH ×2 (07:41→21:12)
[2022-02-27] MEDS: pantoprazole 40mg Tablet.DR PO SCH (07:41)
[2022-02-27] MEDS: docusate sod 100mg capsule PO SCH ×2 (07:41→21:13)
[2022-02-27] MEDS: tamsulosin 0.4mg capsule PO SCH (07:41)
[2022-02-27] MEDS: Tiotropium Br/Olodaterol HCl (Stiolto Respimat Inhal Spray) PO SCH (07:56)
[2022-02-27] MEDS: ondansetron 4mg rapidly disintigrating tab PO PRN (16:20)
[2022-02-27 18:00] VITALS: BP 158/100
--- NOTE | 2022-02-27 18:10 | NUR ---
Problems reprioritized. Patient report given, questions answered & plan of care reviewed with FREDERICK Giles.
[2022-02-27] MEDS: traZODone 50mg tablet PO SCH (21:13)
[2022-02-28 02:00] VITALS: BP 92/53
[2022-02-28 06:00] VITALS: BP 96/67
[2022-02-28 06:22] LABS: BASOPHILS # (AUTO) 0.1 X10'3 (0-0.2); BASOPHILS % (AUTO) 0.8 % (0-1); EOSINOPHILS # (AUTO) 0.3 X10'3 (0-0.9); HEMOGLOBIN 9.7 g/dl (14.0-17.9); LYMPHOCYTES # (AUTO) 0.4 X10'3 (1.1-4.8); LYMPHOCYTES % (AUTO) 5.5 % (21-51); MEAN CORPUSCULAR HGB CONC 32.5 g/dL (33.0-36.5); MEAN CORPUSCULAR VOLUME 86.2 FL (78-98); MEAN PLATELET VOLUME 8.4 FL (7.4-10.4); MONOCYTES # (AUTO) 0.9 X10'3 (0-0.9); MONOCYTES % (AUTO) 13.4 % (2-12); NEUTROPHILS # (AUTO) 5.2 X10'3 (1.8-7.7); NEUTROPHILS % (AUTO) 76.3 % (42-75); PLATELET COUNT 125 X10'3 (140-440); RED BLOOD COUNT 3.49 X10'6 (4.70-6.10); RED CELL DISTRIBUTION WIDTH 18.1 % (11.5-14.5); WHITE BLOOD COUNT 6.8 X10'3 (4.5-11.0)
[2022-02-28 06:42] LABS: ALANINE AMINOTRANSFERASE 625 U/L (12-78); ALBUMIN/GLOBULIN RATIO 0.8 (1.1-1.5); ALKALINE PHOSPHATASE 134 IU/L (46-116); ANION GAP 12 (8-16); ASPARTATE AMINO TRANSFERASE 394 U/L (10-37); BILIRUBIN,TOTAL 0.7 MG/DL (0.1-1.0); BLOOD UREA NITROGEN 61 MG/DL (7-18); BUN/CREATININE RATIO 17.9 (5.4-32.0); CALCIUM 8.2 MG/DL (8.5-10.1); CHLORIDE 99 MMOL/L (99-107); GLUCOSE 73 MG/DL (70-104); POTASSIUM 3.8 MMOL/L (3.5-5.1); SODIUM 138 MMOL/L (135-145); TOTAL CARBON DIOXIDE 27.5 MMOL/L (24-32); TOTAL PROTEIN 6.7 G/DL (6.4-8.2); eGFR 18 ML/MIN
[2022-02-28] MEDS: Tiotropium Br/Olodaterol HCl (Stiolto Respimat Inhal Spray) PO SCH (08:00)
[2022-02-28 11:00] VITALS: BP 96/67
[2022-02-28] MEDS: apixaban 5mg tablet PO SCH ×2 (11:04→21:15)
[2022-02-28] MEDS: levoTHYROXINE 125mcg tablet PO SCH (11:04)
[2022-02-28] MEDS: buPROPion 75mg tablet PO SCH ×2 (11:05→21:15)
[2022-02-28] MEDS: predniSONE 1 mg tablet PO SCH (11:05)
[2022-02-28] MEDS: docusate sod 100mg capsule PO SCH (11:05)
[2022-02-28] MEDS: pantoprazole 40mg Tablet.DR PO SCH (11:06)
[2022-02-28] MEDS: tamsulosin 0.4mg capsule PO SCH (11:06)
[2022-02-28] MEDS: sertraline 50mg tablet PO SCH (11:06)
[2022-02-28] MEDS: carVEDilol 12.5mg tablet PO SCH ×2 (11:07→21:08)
[2022-02-28] MEDS: azithromycin/NS 500mg/250ml 250 ML IV SCH (11:07)
[2022-02-28] MEDS: CefTRIAXone/D5W-Rocephin 1gm 50 ML IV SCH (11:07)
--- NOTE | 2022-02-28 14:40 | NUR ---
Report taken from Birgit
--- NOTE | 2022-02-28 14:41 | NUR ---
Paged RT for breathing treatment
[2022-02-28 15:00] VITALS: BP 125/106
[2022-02-28] MEDS: morphine 4 MG/ML inj SYRINge IV PRN (15:10)
--- NOTE | 2022-02-28 15:18 | NUR ---
Paged RT for breathing trx
[2022-02-28] MEDS: ipratropium/albuterol 3ml nebule NEB PRN (15:26)
[2022-02-28] MEDS ORDERED: normal saline 500ml IV soln 500 ML IV ONE (17:00)
[2022-02-28 20:30] VITALS: BP 97/61
[2022-02-28] MEDS ORDERED: carVEDilol 12.5mg tablet PO ONE (21:10)
[2022-02-28] MEDS: traZODone 50mg tablet PO SCH (21:16)
[2022-02-28 22:30] VITALS: BP 101/61
[2022-03-01 02:30] VITALS: BP 127/83
[2022-03-01 06:00] VITALS: BP 96/79
[2022-03-01 07:33] LABS: BASOPHILS % (AUTO) 0.8 % (0-1); EOSINOPHILS # (AUTO) 0.3 X10'3 (0-0.9); EOSINOPHILS % (AUTO) 4.3 % (0-6); HEMATOCRIT 31.7 % (42.0-52.0); HEMOGLOBIN 10.2 g/dl (14.0-17.9); LYMPHOCYTES # (AUTO) 0.4 X10'3 (1.1-4.8); LYMPHOCYTES % (AUTO) 6.2 % (21-51); MEAN CORPUSCULAR HEMOGLOBIN 27.6 PG (27.0-31.0); MEAN PLATELET VOLUME 8.3 FL (7.4-10.4); MONOCYTES % (AUTO) 16.3 % (2-12); NEUTROPHILS # (AUTO) 4.7 X10'3 (1.8-7.7); NEUTROPHILS % (AUTO) 72.4 % (42-75); PLATELET COUNT 125 X10'3 (140-440); RED BLOOD COUNT 3.69 X10'6 (4.70-6.10); WHITE BLOOD COUNT 6.4 X10'3 (4.5-11.0)
[2022-03-01 07:44] LABS: ALANINE AMINOTRANSFERASE 550 U/L (12-78); ALBUMIN 3.1 G/DL (3.4-5.0); ALBUMIN/GLOBULIN RATIO 0.8 (1.1-1.5); ALKALINE PHOSPHATASE 146 IU/L (46-116); ANION GAP 7 (8-16); ASPARTATE AMINO TRANSFERASE 231 U/L (10-37); BILIRUBIN,TOTAL 0.6 MG/DL (0.1-1.0); BLOOD UREA NITROGEN 63 MG/DL (7-18); BUN/CREATININE RATIO 17.5 (5.4-32.0); CALCIUM 8.1 MG/DL (8.5-10.1); CHLORIDE 99 MMOL/L (99-107); CREATININE 3.59 MG/DL (0.60-1.10); GLUCOSE 74 MG/DL (70-104); POTASSIUM 3.9 MMOL/L (3.5-5.1); SODIUM 135 MMOL/L (135-145); TOTAL CARBON DIOXIDE 29.5 MMOL/L (24-32); eGFR 17 ML/MIN
[2022-03-01] MEDS ORDERED: azithromycin 250mg tablet PO SCH (08:00)
[2022-03-01] MEDS: Tiotropium Br/Olodaterol HCl (Stiolto Respimat Inhal Spray) PO SCH (08:00)
[2022-03-01] MEDS: CefTRIAXone/D5W-Rocephin 1gm 50 ML IV SCH (08:36)
[2022-03-01] MEDS: predniSONE 1 mg tablet PO SCH (08:37)
[2022-03-01] MEDS: buPROPion 75mg tablet PO SCH ×2 (08:37→20:00)
[2022-03-01] MEDS: sertraline 50mg tablet PO SCH (08:37)
[2022-03-01] MEDS: pantoprazole 40mg Tablet.DR PO SCH (08:37)
[2022-03-01] MEDS: carVEDilol 12.5mg tablet PO SCH ×2 (08:38→20:00)
[2022-03-01] MEDS: apixaban 5mg tablet PO SCH ×2 (08:38→20:00)
[2022-03-01] MEDS: levoTHYROXINE 125mcg tablet PO SCH (08:38)
[2022-03-01] MEDS: furosemide 20 MG/2 ML vial IV SCH ×2 (08:39→20:00)
[2022-03-01] MEDS: tamsulosin 0.4mg capsule PO SCH (08:39)
[2022-03-01] MEDS: DOBUTamine-DoBUTrex 500mg/D5W 250 ML IV SCH (08:42)
[2022-03-01] MEDS: ipratropium/albuterol 3ml nebule NEB PRN (09:34)
[2022-03-01 11:00] VITALS: BP 104/52
--- NOTE | 2022-03-01 13:42 | NUR ---
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 Pt PO fluctuates ~42% avg regular diet w/ increase to 63% breakfast/lunch today partially meeting needs. Dietary notified to send smoothie WB for further kcals; RD notified MD of recs for Ensure High Protein BIDLD as well. Noted hx DM though A1C 5.4% per EMR; unsure of accuracy. No documented BM this admit. Will monitor for further nutrition intervention needs. Rec: 1. continue regular diet, smoothie WB; encourage PO 2. Ensure High Protein BIDLD; pending MD verification in EMR 3. routine bowel care; possible 5 days constipation 4. scaled wt this admit; subsequent weekly wts Addendum: 03/01/22 at [address] Amended: Links added.
[2022-03-01] MEDS ORDERED: lactose-reduced food (Ensure High Protein) 237ml bottle PO SCH (17:30)
[2022-03-01 18:00] VITALS: BP 102/68
--- NOTE | 2022-03-01 18:30 | NUR ---
Patient in room PCU 3025. I have received report from Rosana MACK and had the opportunity to ask questions and assume patient care.
[2022-03-01 20:00] VITALS: BP 93/68
[2022-03-01] MEDS: traZODone 50mg tablet PO SCH (21:00)
[2022-03-01 22:00] VITALS: BP 102/75
[2022-03-02] VITALS (7 sets, daily range): BP systolic 92–108; BP diastolic 63–74
[2022-03-02] MEDS: DOBUTamine-DoBUTrex 500mg/D5W 250 ML IV SCH (06:39)
--- NOTE | 2022-03-02 07:23 | NUR ---
Problems reprioritized. Patient report given, questions answered & plan of care reviewed with Rosana MACK.
[2022-03-02] MEDS: Tiotropium Br/Olodaterol HCl (Stiolto Respimat Inhal Spray) PO SCH (08:00)
[2022-03-02] MEDS: pantoprazole 40mg Tablet.DR PO SCH (08:45)
[2022-03-02] MEDS: furosemide 20 MG/2 ML vial IV SCH ×2 (08:45→22:13)
[2022-03-02] MEDS: levoTHYROXINE 125mcg tablet PO SCH (08:46)
[2022-03-02] MEDS: apixaban 5mg tablet PO SCH ×2 (08:46→22:14)
[2022-03-02] MEDS: predniSONE 1 mg tablet PO SCH (08:46)
[2022-03-02] MEDS: carVEDilol 12.5mg tablet PO SCH ×2 (08:47→20:00)
[2022-03-02] MEDS: sertraline 50mg tablet PO SCH (08:47)
[2022-03-02] MEDS: buPROPion 75mg tablet PO SCH ×2 (08:47→22:14)
[2022-03-02] MEDS: tamsulosin 0.4mg capsule PO SCH (08:54)
[2022-03-02 09:52] LABS: ALANINE AMINOTRANSFERASE 384 U/L (12-78); ALBUMIN 2.9 G/DL (3.4-5.0); ALBUMIN/GLOBULIN RATIO 0.8 (1.1-1.5); ALKALINE PHOSPHATASE 128 IU/L (46-116); ANION GAP 6 (8-16); ASPARTATE AMINO TRANSFERASE 116 U/L (10-37); BILIRUBIN,TOTAL 0.6 MG/DL (0.1-1.0); BLOOD UREA NITROGEN 59 MG/DL (7-18); BUN/CREATININE RATIO 18.2 (5.4-32.0); CHLORIDE 99 MMOL/L (99-107); CREATININE 3.24 MG/DL (0.60-1.10); GLUCOSE 123 MG/DL (70-104); POTASSIUM 3.5 MMOL/L (3.5-5.1); SODIUM 136 MMOL/L (135-145); TOTAL CARBON DIOXIDE 30.6 MMOL/L (24-32); TOTAL PROTEIN 6.4 G/DL (6.4-8.2); eGFR 19 ML/MIN
[2022-03-02] MEDS: ipratropium/albuterol 3ml nebule NEB PRN ×2 (11:47→11:48)
--- NOTE | 2022-03-02 19:36 | NUR ---
Got report from CHRISTINA Wayne.
[2022-03-02] MEDS: traZODone 50mg tablet PO SCH (22:14)
[2022-03-03] VITALS (10 sets, daily range): BP systolic 93–112; BP diastolic 65–84
[2022-03-03] MEDS: DOBUTamine-DoBUTrex 500mg/D5W 250 ML IV SCH (04:51)
--- NOTE | 2022-03-03 06:42 | NUR ---
Patient in room PCU 3025. I have received report from Rachana MACK and had the opportunity to ask questions and assume patient care.
[2022-03-03] MEDS: Tiotropium Br/Olodaterol HCl (Stiolto Respimat Inhal Spray) PO SCH (08:00)
[2022-03-03 08:11] LABS: BASOPHILS % (AUTO) 0.6 % (0-1); EOSINOPHILS # (AUTO) 0.3 X10'3 (0-0.9); EOSINOPHILS % (AUTO) 5.7 % (0-6); HEMOGLOBIN 9.9 g/dl (14.0-17.9); LYMPHOCYTES # (AUTO) 0.4 X10'3 (1.1-4.8); LYMPHOCYTES % (AUTO) 6.3 % (21-51); MEAN CORPUSCULAR HEMOGLOBIN 27.3 PG (27.0-31.0); MEAN CORPUSCULAR HGB CONC 32.1 g/dL (33.0-36.5); MEAN PLATELET VOLUME 7.8 FL (7.4-10.4); MONOCYTES # (AUTO) 0.7 X10'3 (0-0.9); MONOCYTES % (AUTO) 12.6 % (2-12); NEUTROPHILS # (AUTO) 4.4 X10'3 (1.8-7.7); NEUTROPHILS % (AUTO) 74.8 % (42-75); PLATELET COUNT 136 X10'3 (140-440); RED BLOOD COUNT 3.64 X10'6 (4.70-6.10); RED CELL DISTRIBUTION WIDTH 17.9 % (11.5-14.5); WHITE BLOOD COUNT 5.9 X10'3 (4.5-11.0)
[2022-03-03 08:21] LABS: ANION GAP 7 (8-16); BLOOD UREA NITROGEN 56 MG/DL (7-18); BUN/CREATININE RATIO 19.8 (5.4-32.0); CALCIUM 8.2 MG/DL (8.5-10.1); CHLORIDE 101 MMOL/L (99-107); CREATININE 2.83 MG/DL (0.60-1.10); GLUCOSE 98 MG/DL (70-104); POTASSIUM 3.3 MMOL/L (3.5-5.1); SODIUM 140 MMOL/L (135-145); TOTAL CARBON DIOXIDE 32.5 MMOL/L (24-32); eGFR 22 ML/MIN
--- NOTE | 2022-03-03 08:41 | NUR ---
Problems reprioritized. Patient report given, questions answered & plan of care reviewed with Gisella MACK.
[2022-03-03] MEDS ORDERED: POTASSIUM BICARB 20meq eff tab 20 MEQ TABLET.EFF PO ONE (09:05)
[2022-03-03] MEDS: pantoprazole 40mg Tablet.DR PO SCH (09:14)
[2022-03-03] MEDS: buPROPion 75mg tablet PO SCH ×2 (09:15→21:38)
[2022-03-03] MEDS: apixaban 5mg tablet PO SCH ×2 (09:15→21:39)
[2022-03-03] MEDS: predniSONE 1 mg tablet PO SCH (09:15)
[2022-03-03] MEDS: tamsulosin 0.4mg capsule PO SCH (09:15)
[2022-03-03] MEDS: levoTHYROXINE 125mcg tablet PO SCH (09:15)
[2022-03-03] MEDS: sertraline 50mg tablet PO SCH (09:16)
[2022-03-03] MEDS: carVEDilol 12.5mg tablet PO SCH (09:16)
[2022-03-03] MEDS: furosemide 20 MG/2 ML vial IV SCH ×2 (09:16→21:39)
--- NOTE | 2022-03-03 18:21 | NUR ---
Problems reprioritized. Patient report given, questions answered & plan of care reviewed with Tisha MACK.
[2022-03-03] MEDS: traZODone 50mg tablet PO SCH (21:39)
[2022-03-04 02:00] VITALS: BP 107/84
[2022-03-04] MEDS: DOBUTamine-DoBUTrex 500mg/D5W 250 ML IV SCH (02:04)
--- NOTE | 2022-03-04 06:11 | NUR ---
Patient in room PCU 3027. I have received report from Deb MACK and had the opportunity to ask questions and assume patient care.
[2022-03-04 07:00] VITALS: BP 108/77
[2022-03-04] MEDS: Tiotropium Br/Olodaterol HCl (Stiolto Respimat Inhal Spray) PO SCH (08:00)
[2022-03-04 08:01] LABS: ALANINE AMINOTRANSFERASE 252 U/L (12-78); ALBUMIN 2.9 G/DL (3.4-5.0); ALBUMIN/GLOBULIN RATIO 0.8 (1.1-1.5); ALKALINE PHOSPHATASE 119 IU/L (46-116); ANION GAP 8 (8-16); ASPARTATE AMINO TRANSFERASE 49 U/L (10-37); BILIRUBIN,TOTAL 0.7 MG/DL (0.1-1.0); BLOOD UREA NITROGEN 48 MG/DL (7-18); BUN/CREATININE RATIO 20.6 (5.4-32.0); CALCIUM 8.2 MG/DL (8.5-10.1); CHLORIDE 102 MMOL/L (99-107); CREATININE 2.33 MG/DL (0.60-1.10); GLUCOSE 76 MG/DL (70-104); POTASSIUM 3.5 MMOL/L (3.5-5.1); SODIUM 142 MMOL/L (135-145); TOTAL CARBON DIOXIDE 32.5 MMOL/L (24-32); TOTAL PROTEIN 6.5 G/DL (6.4-8.2); eGFR 27 ML/MIN
[2022-03-04] MEDS: pantoprazole 40mg Tablet.DR PO SCH (08:45)
[2022-03-04] MEDS: tamsulosin 0.4mg capsule PO SCH (08:46)
[2022-03-04] MEDS: buPROPion 75mg tablet PO SCH (08:46)
[2022-03-04] MEDS: apixaban 5mg tablet PO SCH (08:46)
[2022-03-04] MEDS: furosemide 20 MG/2 ML vial IV SCH (08:46)
[2022-03-04] MEDS: predniSONE 1 mg tablet PO SCH (08:46)
[2022-03-04] MEDS: levoTHYROXINE 125mcg tablet PO SCH (08:46)
[2022-03-04] MEDS: sertraline 50mg tablet PO SCH (08:46)
[2022-03-04 11:00] VITALS: BP 86/58
--- NOTE | 2022-03-04 12:05 | NUR ---
Page Sent promotional table spacer PAGER ID: [phone] MESSAGE: [id number] Joel. Patient not going to [facility] today. Do you want the dobutamine back on? Patient BP 86/58 map 64 or should I just continue to monitor? Gisella @[phone]
[2022-03-04 12:27] VITALS: BP 74/55
--- NOTE | 2022-03-04 12:27 | NUR ---
Page Sent promotional table spacer PAGER ID: [phone] MESSAGE: [id number] Joel. Pt does not seem to be tolerating turning dobutamine off. BP now 74/55 HR 97. PT states he feels anxious, dizzy and would like Ativan and to turn up his o2. Sat at 95% Can I turn dobutamine back on ?. Gisella @[phone]
[2022-03-04 12:39] VITALS: BP 96/73
[2022-03-04 14:21] VITALS: BP 109/74
--- NOTE | 2022-03-04 15:54 | NUR ---
Report called to Catie [facility] at [facility]. PIV was removed with cannula intact. Dobutamine has stayed off and pressures have been stable all afternoon.
[2022-03-05 06:58] LABS: HEPATITIS C ANTIBODY Negative
== END 2022-03-04 16:40 | DRG 871 ==
LOC: ER 21:52 → ED HOLD 02-24 02:21 → PCU 3S 02-25 14:53
PROVIDERS: ADMIT Family Medicine; ATTEND Family Medicine
DX: A41.9 Sepsis, unspecified organism (principal); I50.23 Acute on chronic systolic (congestive) heart failure; J18.9 Pneumonia, unspecified organism; J96.21 Acute and chronic respiratory failure with hypoxia; N17.0 Acute kidney failure with tubular necrosis; I13.0 Hypertensive heart and chronic kidney disease with heart failure and stage 1 through stage 4 chronic kidney disease, or unspecified chronic kidney disease; J44.0 Chronic obstructive pulmonary disease with (acute) lower respiratory infection; R44.3 Hallucinations, unspecified; N18.4 Chronic kidney disease, stage 4 (severe); D64.9 Anemia, unspecified; E11.22 Type 2 diabetes mellitus with diabetic chronic kidney disease; E11.65 Type 2 diabetes mellitus with hyperglycemia; E78.00 Pure hypercholesterolemia, unspecified; I25.10 Atherosclerotic heart disease of native coronary artery without angina pectoris; Z20.822 Contact with and (suspected) exposure to COVID-19; E03.9 Hypothyroidism, unspecified; I27.20 Pulmonary hypertension, unspecified; R29.6 Repeated falls; I95.9 Hypotension, unspecified; W18.39XA Other fall on same level, initial encounter; R55 Syncope and collapse; I48.0 Paroxysmal atrial fibrillation; K76.0 Fatty (change of) liver, not elsewhere classified; K76.1 Chronic passive congestion of liver; N40.0 Benign prostatic hyperplasia without lower urinary tract symptoms; Z79.01 Long term (current) use of anticoagulants; Z79.899 Other long term (current) drug therapy; I25.2 Old myocardial infarction; Z87.891 Personal history of nicotine dependence; Z90.49 Acquired absence of other specified parts of digestive tract; Z95.0 Presence of cardiac pacemaker; Z99.81 Dependence on supplemental oxygen; Z88.5 Allergy status to narcotic agent; Z98.49 Cataract extraction status, unspecified eye; Y93.89 Activity, other specified; Y92.89 Other specified places as the place of occurrence of the external cause; Y99.8 Other external cause status
CPT/HCPCS: 36415; 36600; 70450; 71045; 72125; 76700; 80048; 80053; 80061; 80074; 80305; 80320; 81003; 82550; 82803; 82948; 83036; 83605; 83690; 83735; 83880; 84100; 84145; 84439; 84443; 84480; 84484; 85018; 85025; 85379; 85610; 85730; 87040; 87081; 87811; 92508; 92616; 93005; 93306; 94640; 94760; 97110; 97116; 97161; 97530; 99285; A4615; G0378; J0456; J0696; J1250; J1815; J1940; J2270; J7030; J7040; J7512